=== PATIENT | male | born 1945 | race Caucasian/White ===

== ENCOUNTER 2023-03-26 09:42 | Day surgery (SDC) | payer OTHER, SELFPAY ==
[2023-03-26] VITALS (15 sets, daily range): BP systolic 101–135; BP diastolic 59–77; BMI 24.2
[2023-03-26 10:13] LABS: Hemoglobin 11.7 g/dL (13.0-18.0); Mean Corp Hgb Conc. 33.4 g/dL (33.0-37.0); Mean Corpuscular Hgb 34.6 pg (27.0-31.0); Mean Corpuscular Volume 103.6 fL (80.0-94.0); Mean Platelet Volume 10.4 fL (7.4-10.4); Platelet Count 136 10^3/uL (130-400); Red Blood Cell Count 3.38 10^6/uL (4.70-6.10); Red Cell Dist. Width 14.8 % (11.5-14.5); White Blood Cell Count 5.5 10^3/uL (4.8-10.8)
[2023-03-26] MEDS: NSS 198 ML IV (10:41)
[2023-03-26 13:41] LABS: ACT-LR - POC 281 Seconds (116-155)
--- NOTE | 2023-03-26 14:34 | ITS.CL.CATH ---
Slice Plug Cutter Operator - Catheterization
Cardiac Catheterization
Procedure Report:
CARDIAC CATHETERIZATION REPORT
Date of Procedure: 03/26/2023
Referring: Denis Simmons MD
Indication: Worsening left ventricular dysfunction
HEMODYNAMIC DATA
AO: 138/77
LV: 138/25
LEFT VENTRICULOGRAPHY: Inferior akinesis with severe global hypokinesis. The visually estimated ejection fraction is 20-25% and there is at least mild to moderate mitral regurgitation
CORONARY ANGIOGRAPHY
Dominance: Right
Left Main: Normal
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 There is at least mild LAD stenosis at the distal margin of the saccular aneurysm-no view effectively
quantifies the degree of stenosis. There is a focal 80% lesion in the mid LAD. The remainder of the LAD proper has mild luminal disease. The large first diagonal branch has at least mild ostial stenosis and there is 70% stenosis in the
significantly smaller daughter branch just distal to a bifurcation site.
Circumflex: Trivial luminal irregularities
RCA: 20% proximal and 30% mid stenoses. There is a 30% distal RCA stenosis past the crux and proximal to the takeoff of the RPDA. The RCA terminates with a large PDA and two large right posterolateral branches the more distal of which has 40% mid
stenosis.
FloWire assessment: I will plan was to do FloWire assessment of the LAD. Heparin was used for anticoagulation. The indwelling 5 Bangladeshi right radial artery sheath was upsized to a 0.035 compatibles 6 Bangladeshi sheath. A [employer] flow wire was advanced
into the LAD. 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 We then attempted to cross with a [employer] floppy wire but we were similarly unable to get
this wire through the saccular aneurysm. A whisper wire was then advanced and with persistent effort and some extremely good fortune we were able to get this wire through the aneurysm and then easily into the distal LAD. A second attempt was then
made to wire the vessel with the [place] flow wire hoping that it would tracked next to the whisper wire. This was not to be and we abandoned attempts to perform FloWire and decided to treat the 80% mid LAD lesion with angioplasty.
Angioplasty: At the conclusion of the diagnostic study, the patient underwent LAD intervention. A 3.0 x 12 Xience BARBY was advanced over the whisper wire and positioned to cover the 80% mid LAD lesion. Stenting with deployment pressure of 15 enedina
was followed by postdilatation with a 3.0 NC trek to 17 enedina. The final angiographic result was outstanding. There were no procedural complications. The patient was given Plavix 600 mg at the procedure conclusion.
Closure Device: None-the procedure was performed via the right radial artery. The Aurelio's test was normal prior to the procedure
Radiation (mGy): 568
DAP (cm2.Gy): 53.9
Fluoroscopy time: 10.6 minutes
CONCLUSIONS
1: Elevated LVEDP
2. Inferior akinesis and severe global hypokinesis with EF 20-25%
3. At least mild to moderate mitral regurgitation
4. Single-vessel LAD disease as described
5: Successful stenting of 80% mid LAD lesion using 3.0 x 12 Xience BARBY with outstanding angiographic result
6: We will treat with triple therapy (Eliquis, aspirin, Plavix) for 1 week then stop aspirin and treat for 1 year with Eliquis and Plavix
7. Recommend initiation of medical therapy for severe left ventricular dysfunction. He has allergy to MARY inhibitor which may be angioedema-therefore we will not begin MARY inhibitor, ARB, or Entresto at this time. The details of this allergy can
be worked out in the office setting and therapy with 1 of these agents initiated if appropriate. If not would begin hydralazine and nitrates.
8. Recommend reevaluation of left ventricular function in 3 months to determine whether ICD is appropriate
Copy to: Denis Simmons MD, Blake Pyle MD ([place], [place])
Mg Field MD, [facility], [facility]
[2023-03-26] MEDS: NSS 1000 IV (15:03)
--- NOTE | 2023-03-26 16:15 | W.PN.UPDATE ---
Update Note
Progress Note Update
Pt seen post LAD PCI. Right radial cath site initially with TR band and hematoma proximal to the band. Second band placed with good hematoma management. Both bands with on scheduled with air removal and now no ht/bleeding, non tender, palpable
pulse. Post EKG NSR w/LBBB as before, no acute changes. OOB to chair. To remain on triple therapy with asa/plavix/eliquis for 1 week post pci, then stop aspirin and remain on plavix/eliquis only. New start atorvastatin. Cardiac rehab consulted.
Followup at [facility] as scheduled. Home today if cath site/tele remain stable.
== END 2023-03-26 18:50 | disposition home or self-care (01) ==
LOC: CATH 09:42
PROVIDERS: ATTENDING PHYSICIAN Internal Medicine Cardiovascular Disease; FAMILY PHYSICIAN Family Medicine; OTHER PHYSICIAN Internal Medicine Cardiovascular Disease
DX: I25.10 Atherosclerotic heart disease of native coronary artery without angina pectoris (principal); I34.0 Nonrheumatic mitral (valve) insufficiency; Z88.8 Allergy status to other drugs, medicaments and biological substances; I25.3 Aneurysm of heart; I51.9 Heart disease, unspecified
CPT/HCPCS: 85027; 85347; 93005; 93458; 93571; C1725; C1769; C1874; C1894; C9600; Q9967

== ENCOUNTER 2023-04-07 06:41 | Inpatient (IN) | payer OTHER, SELFPAY ==
[2023-04-07] VITALS (16 sets, daily range): BP systolic 111–143; BP diastolic 59–97; PULSE 2–89; BMI 22.7; BMI 21.5
--- NOTE | 2023-04-07 05:12 | ED.GENMED ---
History of Present Illness
General
Chief Complaint: Breathing Problem
Source: patient
Time Seen by Provider: 04/07/23 05:12
Travel History
Have you had any contact with someone who has COVID-19?: No
Do you have any symptoms of coronavirus? Fever > 100 degrees, chills, cough, shortness of breath, sore throat, loss of taste or smell, muscle aches, or headache?: Yes
Symptoms:: SOB
History of Present Illness
History of Present Illness:
Pleasant 78 old male that presents with acute hypoxia that has been present intermittently but worsening since Wednesday. Patient has a history of renal cancer that was treated 23 years ago. 3 years ago came back and patient has a large mass in his
abdomen with metastases to the lungs. He is being treated at [facility]. His chemotherapeutic agent was stopped 2 weeks ago so that he can get a cardiac catheterization and stenting 1 week ago. Patient states that he has been having difficulty
breathing since Wednesday. states that he is a full code. He is also very pale. states that after the cardiac catheterization, his color improved. Patient denies any current chest pain but does have shortness of breath. He has a history
of Parkinson's.
Vital signs are stable. Patient is hypoxic, and is on BiPAP
Nursing note reviewed. I agree with nursing documentation up to this point in time.
Home Meds and allergies reviewed.
NUMBER AND COMPLEXITY OF PROBLEMS ADDRESSED AT THE ENCOUNTER
� Chronic conditions affecting care: Renal cancer with mets to the lung, CHF, CAD
� Acute Exacerbation and/or Progression of Chronic Illness: Patient has been off chemotherapeutics for cardiac catheterization. There is concern that previous progress and shrinking the tumors has lost, and tumor is now larger
� Differential Diagnosis includes: Lung metastasis, COPD, asthma
AMOUNT AND/OR COMPLEXITY OF DATA TO BE REVIEWED AND ANALYZED
I performed an independent evaluation of the following and my interpretation is:
EKG: EKG shows normal sinus rhythm rate of 81 with left atrial enlargement present as evidenced by high amplitude, there is a left bundle branch block present which was seen on previous EKG.
CT:
X-rays: Portable chest x-ray shows pulmonary vascular congestion with possible infiltrate and/or mass in the left lobe.
Ultrasound:
Laboratory Studies:
Other:
Review of other/old records:Journeyman Painter Report
1: Elevated LVEDP
2.� Inferior akinesis and severe global hypokinesis with EF 20-25%
3.� At least mild to moderate mitral regurgitation
4.� Single-vessel LAD disease as described
5: Successful stenting of 80% mid LAD lesion using 3.0 x 12 Xience BARBY with outstanding angiographic result
6: We will treat with triple therapy (Eliquis, aspirin, Plavix) for 1 week then stop aspirin and treat for 1 year with Eliquis and Plavix
7.� Recommend initiation of medical therapy for severe left ventricular dysfunction.� He has allergy to MARY inhibitor which may be angioedema-therefore we will not begin MARY inhibitor, ARB, or Entresto at this time.� The details of this allergy can
be worked out in the office setting and therapy with 1 of these agents initiated if appropriate.� If not would begin hydralazine and nitrates.
8.� Recommend reevaluation of left ventricular function in 3 months to determine whether ICD is appropriate
Clinical information was obtained by an independent historian: , present at the bedside
Prescriptions/Medications Considered but not given:
Further testing considered but not performed:
RISK OF COMPLICATIONS AND/OR MORBIDITY OR MORTALITY OF PATIENT MANAGEMENT
Social determinants of health affecting care: Good Social Support
Discussion with other providers: Hospitalist for admission
Escalation of care including admission/observation vs risk of discharge considered: Patient full code, on BiPAP, hypoxic
CRITICAL CARE NOTE:
Critical care statement: A total of 30 minutes of critical care time was provided for this patient. This time is separate from time utilized to perform the aforementioned documented procedures. Aggregate critical care time includes only time
during which I was engaged in work directly related to the patient's care, as described above, whether at the bedside or elsewhere in the Emergency Department.
Total Time (exclusive of procedures):30
Update:
Past History
Past History
ED Past Medical History: Asthma, CAD, CHF, HTN and Other (Peripheral vascular disease, Parkinson's disease)
ED Past Surgical History: Appendectomy
Social History
Tobacco: Non-smoker
Review of Systems
Review of Systems
Allergies reviewed?: Yes
Other source history: family
All Other Systems: ROS reviewed and negative except as documented in HPI and ROS
Constitutional: Reports fatigue and sleep disturbance
Respiratory: Reports cough and trouble breathing
Psychiatric: Reports anxiety
Phy Exam
General Physical Exam
General Presentation: severe distress
General Skin: warm, dry and cool
General Habitus: elderly and frail
General Mental: alert and confused
General Hydration: appears well hydrated
ENT Exam
ENT Exam: EOMI, pharynx normal, neck supple and normocephalic
Eye Exam
Eye Exam: PERRL, cornea clear and conjunctiva normal
Cardiovascular Exam
Cardiovascular Exam: regular rate/rhythm, no edema, no murmur and normal peripheral pulses
Pulmonary Exam
Pulmonary Exam: decreased breath sounds and generalized wheezing
Oxygen Status: BiPAP and oxygen 2 liters via NC
Cough: coarse cough
Respirations: accessory muscle use, moderate effort and rapid
Breath Sounds: Wheeze: generalized
Gastrointestinal Exam
Gastrointestinal Exam: normal bowel sounds, non tender, soft, no organomegaly, no pulsatile mass and non distended
Neurological Exam
Neurological Exam: alert, oriented x3, no motor deficits and speech normal
Musculoskeletal Exam
Musculoskeletal Exam: full ROM and no edema
Skin Exam
Skin Exam: warm/dry, no rash, no petechia and pallor
Psychiatric Exam
Psychiatric Exam: normal mood/affect
Scores
Heart Failure Risk
Heart Failure Risk Score: Yes
History of Stroke or TIA: No
History of intubation for respiratory distress: No
Heart rate on ED arrival >/= 110: No
SaO2 <90% on arrival on room air: Yes
HR >/=110 during 3min walk test (or too ill to perform test): Yes
ECG has acute ischemic changes: No
Urea >/=12mmol/L (BUN 33.6mg/dL): No
Serum CO2>/=35mmol/L: No
Troponin I or T elevated to IN Level (0.4mg/dL): No
NT-proBNP >/=5,000ng/L (5,000pg/ml): Yes
HF Risk Score: 4
Admission Status: HIGH RISK 26.1% Consider SNF treatment or admission to hospital
Course
Orders/Labs/Results
Orders:
Orders
04/07/23 05:06
Ipratropium/Albuterol Sulfate [Duoneb] 3 ml .ROUTE .STK-MED ONE
04/07/23 05:07
Electrocardiogram (*1) Urgent
Reason for Study: Other
Other Reason for Exam: Respiratory Distress
Cardiac Monitoring- Treatment ONCE
EKG- Treatment ONCE
IV Insert/Care/Rem.- Treatment PRN
Portable Chest Xray [CR Chest Portable - 1 View] Urgent
Comment:
Reason For Exam: sob
Reason Study Needs to be Portable: Patient Unstable
04/07/23 05:12
Complete Blood Count/With Diff Urgent
Comprehensive Metabolic Panel Urgent
NT-proBNP Urgent
Troponin I Urgent
04/07/23 05:14
Type And Crossmatch Urgent
04/07/23 05:24
COVID-19 Antigen Urgent
Source: Nasal Swab
Influenza A+B Rapid Molecular Urgent
GUNNAR Source: Nasal Swab
Specimen Description:
04/07/23 05:51
ABG [Arterial Blood Gas] Urgent
%Oxygen/Room Air: Bipap
Abnormal Lab Results
04/07/23 04/07/23
05:12 05:51
RBC 3.24 L 10^6/uL
(4.70-6.10)
Hgb 11.3 L g/dL
(13.0-18.0)
Hct 34.4 L %
(39.0-52.0)
MCV 106.2 H fL
(80.0-94.0)
MCH 34.9 H pg
(27.0-31.0)
MCHC 32.8 L g/dL
(33.0-37.0)
RDW 14.6 H %
(11.5-14.5)
Abs Immat Gran (auto) 0.1 H 10^3/uL
(0-0.05)
Absolute Neuts (auto) 8.7 H 10^3/uL
(1.4-6.5)
Absolute Lymphs (auto) 0.4 L 10^3/uL
(1.2-3.4)
Absolute Monos (auto) 1.0 H 10^3/uL
(0.1-0.6)
Neutrophils % 85.7 H %
(42.2-75.2)
Lymphocytes % 3.8 L %
(20.5-51.1)
Monocytes % 9.8 H %
(1.7-9.3)
pO2 72 L mmHg
(83-108)
Potassium 5.3 H mmol/L
(3.5-5.1)
BUN 29 H mg/dl
(9-20)
Glucose 134 H mg/dl
(70-99)
Total Protein 6.1 L g/dl
(6.3-8.2)
Albumin 3.2 L g/dl
(3.5-5.0)
04/07/23 05:12
04/07/23 05:12
Vital Signs
Initial and Last Documented VS:
Initial Vital Signs
Pulse Resp BP Pulse Ox
86 32 143/83 88
04/07/23 05:05 04/07/23 05:05 04/07/23 05:05 04/07/23 05:05
Last Documented Vital Signs
Pulse Resp BP Pulse Ox
86 32 143/83 97
04/07/23 05:05 04/07/23 05:05 04/07/23 05:05 04/07/23 05:32
*Critical Care Note
Total Time (30-74mins, 75-104mins- exclusive of procedures): 35
comment:
Critical care statement: A total of 35 minutes of critical care time was provided for this patient. This time is separate from time utilized to perform the aforementioned documented procedures. Aggregate critical care time includes only time
during which I was engaged in work directly related to the patient's care, as described above, whether at the bedside or elsewhere in the Emergency Department.
Data Reviewed
Review of Other/Old Records Reveals: Labs, Testing and Progress Notes
Source: patient
ED Attending Note
-
Portions of this chart may have been created with voice recognition software.� Occasional wrong word or��sound alike� substitutions may have occurred due to the inherent limitations of voice recognition software.
Discharge Plan
Departure
Patient Disposition: Admit
Date of Disposition: 04/07/23
Time of Disposition: 06:12
Admit to: IMU
Presentation/result/management discussed w/ accepting MD/DO: Hospitalist
Condition: Serious
Discharge Problem:
CHF (congestive heart failure), Hypoxia
Prescriptions:
No Action
metoprolol succinate 50 MG tablet extended release 24 hr
50 mg PO DAILY
aspirin 81 MG tablet,delayed release (DR/EC)
81 mg PO DAILY
spironolactone 12.5 MG tablet
12.5 mg PO Daily
amlodipine 10 MG tablet
10 mg PO DAILY
carbidopa-levodopa 1 TABLET tablet
2 tab PO BID
carbidopa-levodopa 1 TABLET tablet
1 tab PO QPM
atorvastatin 40 mg Tablet
40 mg PO QPM Qty: 90 3RF
clopidogrel 75 mg Tablet
75 mg PO DAILY Qty: 90 3RF
nitroglycerin [nitroglycerin] 0.4 mg tablet, sublingual
0.4 mg sublingual [id number] PRN (Reason: chest pain) Qty: 25 2RF
Eliquis 5 mg Tablet
5 mg PO BID
Interventions
Interventions:
*Risk Screen - Suicide Last Done: 04/07/23 05:15
*General Assessment Last Done: 04/07/23 05:05
*Neglect/Abuse Screening Last Done: 04/07/23 05:05
ED- Fall Risk Assessment Last Done: 04/07/23 05:10
*ED COVID-19 Vaccine History Last Done: 04/07/23 05:10
ED- Cardiac Assessment Last Done: 04/07/23 05:15
ED- Pulmonary Assessment Last Done: 04/07/23 05:32
[2023-04-07 05:20] LABS: % Basophils 0.2 % (0-2); % Immature Granulocytes 0.5 % (0-0.5); % Lymphocytes 3.8 % (20.5-51.1); % Monocytes 9.8 % (1.7-9.3); % Neutrophils 85.7 % (42.2-75.2); Absolute Immature Granulocytes 0.1 10^3/uL (0-0.05); Absolute Lymphocytes 0.4 10^3/uL (1.2-3.4); Absolute Neutrophils 8.7 10^3/uL (1.4-6.5); Hematocrit 34.4 % (39.0-52.0); Hemoglobin 11.3 g/dL (13.0-18.0); Mean Corp Hgb Conc. 32.8 g/dL (33.0-37.0); Mean Corpuscular Hgb 34.9 pg (27.0-31.0); Mean Corpuscular Volume 106.2 fL (80.0-94.0); Mean Platelet Volume 9.1 fL (7.4-10.4); Nucleated Red Blood Cells % 0 % (-); Platelet Count 357 10^3/uL (130-400); Red Blood Cell Count 3.24 10^6/uL (4.70-6.10); Red Cell Dist. Width 14.6 % (11.5-14.5); White Blood Cell Count 10.1 10^3/uL (4.8-10.8)
[2023-04-07 05:43] LABS: ALT (SGPT) 18 U/L (0-50); AST (SGOT) 24 U/L (17-59); Albumin 3.2 g/dl (3.5-5.0); Alkaline Phosphatase 89 U/L (38-126); Blood Urea Nitrogen 29 mg/dl (9-20); Calcium 9.1 mg/dl (8.4-10.2); Carbon Dioxide 22 mmol/L (22-30); Chloride 105 mmol/L (98-107); Estimated Creatinine Clearance 46 ml/min; Glucose 134 mg/dl (70-99); Potassium 5.3 mmol/L (3.5-5.1); Sodium 140 mmol/L (135-145); Total Bilirubin 1.3 mg/dl (0.2-1.3); Total Protein 6.1 g/dl (6.3-8.2); eGFR 56.93
[2023-04-07 05:45] LABS: NT-proBNP 11700 pg/ml; Troponin I 0.014 ng/ml
[2023-04-07 06:00] LABS: B.E. -3.4 mmol/L; HCO3 21.3 mmol/L (21-28); O2 Saturation % 94.2 % (94-98); PCO2 36 mmHg (35-48); PO2 72 mmHg (83-108); pH 7.38 (7.35-7.45)
[2023-04-07 06:04] LABS: COVID-19 Antigen Negative (Negative)
--- NOTE | 2023-04-07 06:09 | HPS.HSE ---
Family Physician
-
Family Physician:
Chief Complaint
-
Shortness of breath, hypoxia
History of Present Illness
HPI: 78 yo old male PMH Parkinson's disease, hypertension, RCC with pulm mets, right nephrectomy, recent ACS s/p PCI to LAD 1 week prior; p/w SOB and acute hypoxia.
Symptoms started 3 days ago. He also c/o mild dry cough, but denies to CP.
Of note, patient underwent recent cardiac catheterization with PCI in LAD.
Medical History
Past Medical History
Past Medical History: Reports Other
Additional Past Medical History:
Parkinson's disease, hypertension, RCC with pulm mets, right nephrectomy, PCI to LAD 2 week2 prior, pulm embolism on Eliquis
Past Surgical History: Reports Other
Additional Past Surgical History:
Right nephrectomy
Social History
Tobacco: Non-smoker
Alcohol: None
Personal:
Living: With Family
Family History
Family History: Not pertinent
Allergies / Home Medications
Allergies reflects when Allergies were last updated in [email or web address].
Home Medications with original date entered in [email or web address]
Allergy/Medication List:
Allergies
Allergy/AdvReac Type Severity Reaction Status Date / Time
enalapril Allergy Severe Swelling Verified 04/07/23 05:05
Home Medications
amlodipine 10 mg tablet 10 mg PO DAILY Blood pressure 06/16/19
aspirin 81 mg tablet,delayed release 81 mg PO DAILY Blood clot prevention/tx 06/16/19
carbidopa 25 mg-levodopa 100 mg tablet 1 tab PO QPM Neurological Condition 06/16/19
carbidopa 25 mg-levodopa 100 mg tablet 2 tab PO BID Neurological Condition 06/16/19
metoprolol succinate 50 mg tablet,extended release 24 hr 50 mg PO DAILY Blood pressure 06/16/19
spironolactone 25 mg tablet 12.5 mg PO Daily Blood pressure 06/16/19
apixaban 5 mg tablet (Eliquis) 5 mg PO BID 03/26/23
atorvastatin 40 mg tablet 40 mg PO QPM #90 tabs 03/26/23
clopidogrel 75 mg tablet 75 mg PO DAILY #90 tabs 03/26/23
nitroglycerin 0.4 mg sublingual tablet 0.4 mg sublingual [id number] PRN chest pain #25 tabs 03/26/23
Review of Systems
-
Respiratory: Reports See HPI, Cough (mild and dry) and Trouble Breathing
Physical Exam
Vital Signs
Vital Signs
Pulse Resp BP Pulse Ox
86 32 143/83 97
04/07/23 05:05 04/07/23 05:05 04/07/23 05:05 04/07/23 05:32
Physical Exam
General: Well Developed, Well Nourished and Respiratory Distress
HEENT: NormoCephalic, Moist mucous membranes, Atraumatic and Oxygen (BIPAP)
Respiratory: Clear and Non Labored Respirations; No Wheezes or Accessory Resp Muscle Use
Cardiac: S1/S2 and Regular Rhythm; No Murmur or Rub
GI: Soft, Non Tender, Non Distended and Normal Bowel Sounds; No Organomegaly
Rectal: Deferred by Provider
Musculoskeletal: No Clubbing, No Cyanosis and No Edema
Skin: No Rash
Neuro: Awake and Alert
Psych: Calm and Intact Judgment/Insight
Laboratory Results
-
04/07/23 05:12
04/07/23 05:12
Laboratory Results
pH 7.38 (7.35-7.45) 04/07/23 05:51
pCO2 36 mmHg (35-48) 04/07/23 05:51
pO2 72 mmHg (83-108) L 04/07/23 05:51
HCO3 21.3 mmol/L (21-28) 04/07/23 05:51
Total Bilirubin 1.3 mg/dl (0.2-1.3) 04/07/23 05:12
AST 24 U/L (17-59) 04/07/23 05:12
ALT 18 U/L (0-50) 04/07/23 05:12
Alkaline Phosphatase 89 U/L (38-126) 04/07/23 05:12
Troponin I 0.014 ng/ml 04/07/23 05:12
Data Reviewed
-
Diagnostic Radiology: Image Personally Visualized and interpreted
Lab Data: Labs Reviewed by me
Impression/Plan
-
HPI: 78 yo old male PMH Parkinson's disease, hypertension, RCC with pulm mets, right nephrectomy, recent ACS s/p PCI to LAD 1 week prior; p/w SOB and acute hypoxia.
Symptoms started 3 days ago. He also c/o mild dry cough, but denies to CP.
Of note, patient underwent recent cardiac catheterization with PCI in LAD.
A/P:
# Acute hypoxic respiratory failure suspect related to pulmonary metastases
CXR noted infiltrate likely from lung metastases, follow formal report
Check procal and treat accordingly
COVID/Flu negative
Pulm CS
# Renal cell carcinoma with pulmonary metastases
# h/o right nephrectomy
Pt follows at [facility]
His chemotherapeutic agent was stopped 2 weeks ago for cardiac catheterization and stenting
# recent ACS s/p PCI to LAD 1 week prior
Cont ASA/plavix
Card CS
# Parkinson's disease
Cont PAINTING WORKER Sinemet
# h/o recent pulm embolism, on Eliquis for 3 months
Continue prior to admission Eliquis
# hypertension
Cont home meds except Aldactone due to hyperkalemia
# Mild hyperkalemia
hold PAINTING WORKER Aldactone
DVT ppx: PAINTING WORKER Eliquis
FC
[2023-04-07] MEDS: LASIX 60 MG IV (06:53)
[2023-04-07 07:44] LABS: Procalcitonin 0.41 ng/ml (0.0-0.25)
--- NOTE | 2023-04-07 07:45 | PTCARENOTE ---
Patient received from the ER, at bedside. Patient brought up on 6L N/C, placed back on BiPAP 12/5 with 12L due to increased work of breathing. Lasix was given just prior to arrival. AAO, VSMaria C. Admission questions done, assisted with
some. No complaints of pain. Will trial of BiPAP after a few hours, tolerating well at this time. Oriented to room. Call rousseau in reach.
[2023-04-07] MEDS: TOPROL XL 50 MG PO (08:33)
[2023-04-07] MEDS: ASPIR LOW (ENTERIC COATED) 81 MG PO (08:33)
[2023-04-07] MEDS: NORVASC 10 MG PO (08:34)
[2023-04-07] MEDS: ELIQUIS 5 MG PO ×2 (08:34→20:28)
[2023-04-07] MEDS: SINEMET 25-100 2 TABLET PO ×2 (08:34→20:28)
[2023-04-07] MEDS: PLAVIX 75 MG PO (08:34)
--- NOTE | 2023-04-07 09:24 | CON.PUL ---
Consultation
Consultation Request
Date/Time Consultation Requested: 04/07/23
Date/Time Consultation Performed: 04/07/23
Performing Provider: Lukasz
Reason for Consultation: SOB
Medical History
-
History of Present Illness:
Patient is a 78-year-old male with previous history of Parkinson disease, hypertension, RCC with mets to lung and bone, ACS with recent stent placement 1 week prior presenting with acute onset of shortness of breath and hypoxemia. He notes that
this started within the last few days, had previously not had shortness of breath in the past. Of note, he was noted to have echocardiogram with reduced EF of 30% felt to be due to his chemo regiment cabozantinib. This has recently been held by his
oncologist at [place].
Denies any prior history of lung disease in the past including asthma/COPD. He was essentially a non smoker, no exposures that he is aware of.
Of note, he was also recently diagnosed with PE and placed on Eliquis.
CXR showing bilateral upper lobe findings, GGOs that is new from prior but past imaging was from 2020 for comparison and he had most of his imaging done at [facility].
Unclear what changes are acute vs chronic.
Past Medical History
Past Medical History: Other (see list below)
Social History
Tobacco: Non-smoker
Alcohol: None
Drug: None
Family History
Family History: Reviewed & Not Pertinent
Allergies / Home Medications
Allergies
Allergy/AdvReac Type Severity Reaction Status Date / Time
enalapril Allergy Severe Swelling Verified 04/07/23 05:05
Home Medications
Medication Instructions Recorded Confirmed Last Taken Type
amlodipine 10 mg tablet 10 mg PO DAILY Blood pressure 06/16/19 04/07/23 04/06/23 08:00 History
aspirin 81 mg tablet,delayed 81 mg PO DAILY Blood clot 06/16/19 04/07/23 04/06/23 08:00 History
release prevention/tx
carbidopa 25 mg-levodopa 100 mg 1 tab PO QPM Neurological Condition 06/16/19 04/07/23 04/06/23 20:00 History
tablet
carbidopa 25 mg-levodopa 100 mg 2 tab PO BID Neurological Condition 06/16/19 04/07/23 04/06/23 20:00 History
tablet
metoprolol succinate 50 mg 50 mg PO DAILY Blood pressure 06/16/19 04/07/23 04/06/23 08:00 History
tablet,extended release 24 hr
spironolactone 25 mg tablet 12.5 mg PO Daily Blood pressure 06/16/19 04/07/23 04/06/23 08:00 History
apixaban 5 mg tablet (Eliquis) 5 mg PO BID 03/26/23 04/07/23 04/06/23 20:00 History
atorvastatin 40 mg tablet 40 mg PO QPM #90 tabs 03/26/23 04/07/23 04/05/23 20:00 Rx
clopidogrel 75 mg tablet 75 mg PO DAILY #90 tabs 03/26/23 04/07/23 04/06/23 08:00 Rx
nitroglycerin 0.4 mg sublingual 0.4 mg sublingual [id number] PRN 03/26/23 04/07/23 Unknown Rx
tablet chest pain #25 tabs
Review of Systems
-
History Source: Patient
All other systems: Negative unless noted
Vitals / Labs / Diagnostic Testing
Vital Signs
Temp Pulse Resp BP Pulse Ox
98.1 F 81 22 135/97 98
04/07/23 07:45 04/07/23 08:33 04/07/23 07:00 04/07/23 08:33 04/07/23 07:00
Lab Data
04/07/23 05:12
04/07/23 05:12
Laboratory Results
04/07/23
05:51
pH 7.38
pCO2 36
pO2 72 L
HCO3 21.3
O2 Delivery Level
Microbiology
04/07/23 05:24 Nasal Swab Influenza Types A & B ([facility]OS[facility]) - Final
Negative for Influenza A & B, NAAT
Negative results must be combined with clinical observations
and patient history.
Nucleic Acid Amplification test (NAAT)performed on the
[employer] NOW platform.
Diagnostic Testing:
Physical Exam
-
HEENT: Normocephalic, Anicteric and Moist Mucous Membranes
Cardiovascular: S1/S2 and Regular Rhythm
Respiratory: Rales and Non-Labored Respirations
GI: Soft, Non Distended and Non Tender
Neurology: Awake, Alert, Oriented, AO x 3 and No Motor Deficits
Skin: Warm, Dry and Good Color
General: Comfortable and Other (NAD, chronically ill appearing)
Assessment
-
Patient is a 78-year-old male with previous history of Parkinson disease, hypertension, RCC with mets to lung and bone, ACS with recent stent placement 1 week prior presenting with acute onset of shortness of breath and hypoxemia. He notes that
this started within the last few days, had previously not had shortness of breath in the past. Of note, he was noted to have echocardiogram with reduced EF of 30% felt to be due to his chemo regiment cabozantinib. This has recently been held by his
oncologist at [place]. CXR showing diffuse bilateral infiltrates, we are consulted for eval 04/07/23.
Acute hypoxic respiratory failure
Acute CHF with reduced EF, proBNP >53960
Weight gain 5-7 lbs
Bilateral patchy infiltrates, CHF likely, less likely drug induced pneumonitis
Severe LV dysfunction possible from chemotherapy
Had been on Cabozantinib, follows Dr Castorena at [facility]
Possible superimposed PNA, on abx, procal mildly elevated
Conditions present prior to admission:
Right hilar lung mass/Large pancreatic mass with bony metastases felt to be metastatic progression of RCC
History of renal cell carcinoma status post nephrectomy originally diagnosed 2000
Follows at [facility]
History of PE, on Eliquis
Asthma
CAD
Chronic systolic and diastolic heart failure
LBBB
Hypertension
Peripheral vascular disease
Parkinson's disease
Prior history of appendectomy
Plan
Hypoxemia noted on arrival, placed on 6L satting 93%
No history of home O2 use in past
Denies any prior history of lung disease in the past including asthma/COPD. He was essentially a non smoker, no exposures that he is aware of.
Of note, he was also recently diagnosed with PE and placed on Eliquis.
It would be unusual to develop lung disease acutely relating to asthma/COPD
Suspect patient has underlying CHF exacerbation given proBNP and reduced EF
states he had gained weight of 5-7 lbs in the past month
CXR showing bilateral upper lobe findings, GGOs that is new from prior but past imaging was from 2019 for comparison and he had most of his imaging done at [facility].
Unclear what changes are acute vs chronic.
will bring in most recent imaging
Other imaging reviewed from 2019
Metastatic RCCC history
Cabozantinib information via [employer] showing minimal pulmonary disease related to use
>2% pleural effusion; <5% PE
Drug induced pneumonitis less likely
ECHO results in past reviewed--EF reduced
proBNP 38924
[place] to be due to chemo, on hold
Cards eval
Recommend IV diuresis
Procal mildly elevated, on empiric abx
Check sputum culture if able
If not improving, may consider CT imaging
Will need outpatient pulmonary evaluation in our office for PFTs and 6MWT
Reviewed with patient
He has never had PFTs
Malnutrition may be an issue as well
Optimize diet
Aspiration precautions
We will follow
Diagnostic Data
Chest X-Ray: 04/07/23- 1. Patchy foci of interstitial and alveolar opacity bilaterally. Differential diagnosis includes multifocal pneumonia and atypical pulmonary edema. Radiographic follow-up to resolution is recommended.
2. Small left pleural effusion.
CT Chest 06/30/19- IMPRESSION:
1). There is a 4.5 cm heterogeneous pulmonary mass at the posterior inferior left hilum which highly probably is malignant.
2). There is 1.8 cm oval well-circumscribed pulmonary mass in the posterior aspect of the left upper lobe which is high-level suspicion for malignancy.
3). There is 2.4 cm lytic bone mass in the posterior medial left scapula which is high-level suspicion for lytic metastasis.
4). There is partial volume imaging of 10 cm inhomogeneous mass at the pancreatic head and adenopathy at the melecio hepatis seen on the 06/19/2019 MRI examination and 06/16/2019 CT abdomen pelvis study
5).There is a 2 cm inhomogeneous mass in the right lobe of the thyroid which, if clinically indicated, could be best further evaluated and followed with thyroid ultrasound
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
primary pancreatic cancer, less likely hepatic metastases from renal cell carcinoma.� Bilobed mass in the left abdomen and flank consistent with metastasis.� 3.9 cm enhancing mass in the right lower lobe of the lung consistent with pulmonary
metastasis.� 1.7 cm mass in the T12 vertebral body consistent with osseous metastases, Partial small bowel obstruction.� Large amount of varicosities in the wall of the gallbladder, no abnormal gallbladder distention or evidence for cholelithiasis,
no intrahepatic biliary dilatation,
Echo: 01/27/23- Severely reduced left ventricular systolic function. Left ventricular ejection�fraction is 30%.�Left ventricle is mildly dilated. Global hypokinesis.��Moderate mitral regurgitation.��Compared to prior study of Jan 2022: EF has
declined; MR is moderate from mild.
2019-Mildly reduced left ventricular systolic function, EF 45�50 percent, stage II diastolic dysfunction, mild to moderate MR.� Trace TR, estimated PA pressure 33�38
[facility] 03/26/23- 1: Elevated LVEDP
2.� Inferior akinesis and severe global hypokinesis with EF 20-25%
3.� At least mild to moderate mitral regurgitation
4.� Single-vessel LAD disease as described
5: Successful stenting of 80% mid LAD lesion using 3.0 x 12 Xience BARBY with outstanding angiographic result
PFT's:�
Reports and relevant images were personally reviewed.
[2023-04-07] MEDS: ZOSYN 50 IV ×3 (10:15→20:29)
--- NOTE | 2023-04-07 13:51 | W.PN.HOSP.TC ---
Today's Communication/Plan
-
Monitor vital signs
see plan
Continue with IV Lasix
Cardiology to see
Continue with antibiotics for now
Wean oxygen as tolerated
Nonbillable note
Assessment / Plan
Assessment / Plan
General: Well Developed, Well Nourished and Respiratory Distress
HEENT: NormoCephalic, Moist mucous membranes, Atraumatic and Oxygen NC
Respiratory: Clear and Non Labored Respirations; No Wheezes or Accessory Resp Muscle Use
Cardiac: S1/S2 and Regular Rhythm; No Murmur or Rub
GI: Soft, Non Tender, Non Distended and Normal Bowel Sounds; No Organomegaly
Rectal: Deferred by Provider
Musculoskeletal: No Clubbing, No Cyanosis and No Edema
Skin: No Rash
Neuro: Awake and Alert
Psych: Calm and Intact Judgment/Insight
Acute hypoxic respiratory failure suspect related to acute CHF with reduced ejection fraction
was placed on bipap on admission; now on 6L
suspect component of PNA as well
Cardiac catheterization 2/2 with LAD stent, elevated left ventricular end-diastolic pressure, inferior akinesis and severe global hypokinesis with EF 20 to 25%
CXR noted; probnp mildly high
cw IV alsix
cardiology consulted
procal mildly high so will treat for PNA
COVID/Flu negative
Pulm following
# Renal cell carcinoma with pulmonary metastases
# h/o right nephrectomy
Pt follows at [facility]
His chemotherapeutic agent was stopped 2 weeks ago; restart when able per his outpatient oncology
mild hyperkalemia
monitor
# recent ACS s/p PCI to LAD 1 week prior
Cont ASA/plavix
Card CS
# Parkinson's disease
Cont REFRACTORY MIXER Sinemet
# h/o recent pulm embolism, on Eliquis for 3 months
Continue prior to admission Eliquis
# hypertension
Cont home meds except Aldactone due to hyperkalemia
# Mild hyperkalemia
hold REFRACTORY MIXER Aldactone
DVT ppx: REFRACTORY MIXER Eliquis
Anticipated Discharge: > 48 hours
Subjective/Interval History
-
Date of Service: April 07, 2023
denies chest pain
Objective Data
-
Labs:
Laboratory Results
04/07/23 04/07/23
05:12 05:51
WBC 10.1
Hgb 11.3 L
Hct 34.4 L
Plt Count 357
HCO3 21.3
Sodium 140
Potassium 5.3 H
Chloride 105
Carbon Dioxide 22
BUN 29 H
Creatinine 1.3
Glucose 134 H
Calcium 9.1
Total Bilirubin 1.3
AST 24
ALT 18
Alkaline Phosphatase 89
Vital Signs:
Vital Signs
Temp Pulse Resp BP Pulse Ox
97.7 F 81 22 135/97 93
04/07/23 11:54 04/07/23 08:33 04/07/23 07:00 04/07/23 08:33 04/07/23 12:25
I&O
04/06/23 04/07/23 04/08/23
06:59 06:59 06:59
Output Total 800 / 800
Balance -800 / -800
--- NOTE | 2023-04-07 16:24 | CM ---
Patient with Hx Renal cell carcinoma with pulmonary metastases, Parkinson's disease with Dx Acute hypoxic respiratory failure, CHF. Bipap. O2 6L. Receiving IV Lasix, IV Zosyn.
Met with patient who resides with his in a 2 story house, with first floor bedroom/bath.
The patient was Independent for ADLs/ambulation. He is active and drives. still works.
No DME, prior VN or SNF.
PCP - Blake Pyle
Pharmacy - [facility]
Offered VN and patient declined.
Plan watch for home O2 needs.
Plan home.
--- NOTE | 2023-04-07 17:18 | CON.CAR ---
Addendum entered and electronically signed by Aicha Barba MD 04/07/23 17:49:
I saw and examined the patient.
The SALVAGE LABORER's note was reviewed and I agree with the note.
Comment: 78-year-old with a past medical history of recent diagnosis of cardiomyopathy with an EF of 30%, recent PCI 03/26/2023 to the LAD, metastatic renal cell carcinoma on chemotherapy, left bundle branch block and PE presented with increasing
shortness of breath since Wednesday. describes him to be wheezing, orthopneic and gaining weight. Initially they were concerned that the new antiplatelet might have caused the wheezing so he skipped 2 days of it. Luckily no chest pain. He was
admitted and started on BiPAP. He is back on BiPAP after a brief respite this afternoon. Currently he is feeling better. On exam, his JVP is elevated, he has faint end expiratory wheezing diffusely, regular rate and rhythm. No lower extremity
edema. Chest x-ray is not very impressive but official read says patchy focal interstitial and alveolar opacities seen in the left perihilar and right upper lung zone differential diagnosis multifocal pneumonia or atypical pulmonary edema. He is
being treated for pneumonia. Clearly, there are signs of volume overload. We will add an additional dose of Lasix and see if this helps get him off BiPAP. He will continue on Plavix and Eliquis, no need for aspirin. We had a nilda discussion
about the importance of compliance with this regimen to reduce his risk of acute thrombosis of his stent. Eventually, GDMT will be optimized. I suspect he needs to take at standing Lasix dose as he was only on Aldactone as an outpatient. Will
follow.
Original Note:
Consultation
Consultation Request
Date/Time Consultation Requested: 04/07/20 [id number]
Date/Time Consultation Performed: 04/07/23 1721
Requesting Provider: Dr. Vasquez
Performing Provider: Wendy HOFFMAN for Dr. Barba
Reason for Consultation: CHF
Medical History
-
Chief Complaint: SOB
History of Present Illness:
78 y/o male with hypertension, LBBB, mild CM EF 40-45%, but recently reduced 30% (though 20-25% on cath), mitral regurgitation, parkinson's disease, PE on Eliquis, recurrent left-sided renal cell carcinoma who was found to have worsened CM as noted
to EF 30%. A chemo agent he was on was discontinued and he was referred for cardiac cath, which he had on 03/26/23 and had LAD stent. He was on triple therapy for a week, but then ASA stopped and now on Plavix/Eliquis. He is here for 3 days of SOB,
worse with laying flat. 5-6 lb weight gain, but not eating much. Cough noted, non-productive. He is admitted for heart failure and received a dose of IV Lasix. Of note, he was wheezing at home and stopped plavix for 2 days and was told he may not do
this moving forward. He has no CP. He is currently on BiPAP.
Past Medical History
Past Medical History: Cancer, CHF, HTN, Valvular Disease and Other (as above)
Social History
Personal:
Living: With Family
Family History
Family History: CAD (mom and dad [place])
Allergies / Home Medications
Allergy/AdvReac Type Severity Reaction Status Date / Time
enalapril Allergy Severe Swelling Verified 04/07/23 05:05
Medication Instructions Recorded Confirmed Type
amlodipine 10 mg tablet 10 mg PO DAILY Blood pressure 06/16/19 04/07/23 History
aspirin 81 mg tablet,delayed 81 mg PO DAILY Blood clot 06/16/19 04/07/23 History
release prevention/tx
carbidopa 25 mg-levodopa 100 mg 1 tab PO QPM Neurological Condition 06/16/19 04/07/23 History
tablet
carbidopa 25 mg-levodopa 100 mg 2 tab PO BID Neurological Condition 06/16/19 04/07/23 History
tablet
metoprolol succinate 50 mg 50 mg PO DAILY Blood pressure 06/16/19 04/07/23 History
tablet,extended release 24 hr
spironolactone 25 mg tablet 12.5 mg PO Daily Blood pressure 06/16/19 04/07/23 History
apixaban 5 mg tablet (Eliquis) 5 mg PO BID 03/26/23 04/07/23 History
atorvastatin 40 mg tablet 40 mg PO QPM #90 tabs 03/26/23 04/07/23 Rx
clopidogrel 75 mg tablet 75 mg PO DAILY #90 tabs 03/26/23 04/07/23 Rx
nitroglycerin 0.4 mg sublingual 0.4 mg sublingual [id number] PRN 03/26/23 04/07/23 Rx
tablet chest pain #25 tabs
Review of Systems
-
History Source: Patient
All other systems: Negative unless noted
Constitutional: Weight Gain
Respiratory: Cough and Trouble Breathing
Physical Exam
Vital Signs
Temp Pulse Resp BP Pulse Ox
97.7 F 78 20 111/59 97
04/07/23 11:54 04/07/23 16:00 04/07/23 16:00 04/07/23 16:00 04/07/23 16:00
Lab Results
04/07/23 05:12
04/07/23 05:12
Troponin I 0.020 ng/ml D 04/07/23 12:37
Jcn-E-Tztvkxdbupx Pept [id number] pg/ml 04/07/23 05:12
Physical Exam
General: Well Developed and No Apparent Distress
HEENT: Normocephalic and Anicteric
Respiratory: Wheezes (mild) and Other (bipap)
Cardiac: Regular Rhythm
Skin: Warm and Dry
Neuro: AO x 3
Psych: Calm
Impression / Plan
-
SOB:
-[id number] HFrEF and possible PNA as well- PNA management per primary (on abx). Pulm on board as well.
Acute on chronic HFrEF:
-EF 30% on echo, 20-25% by cath
-had heart failure in the past per notes
-on Aldactone as OP, not Lasix- hyperkalemia is noted, so currently held. Follow.
-BNP elevated and reports weight gain and orthopnea
-received IV Lasix this AM, will give another dose now- monitor response. This medicine requires intensive monitoring for toxicity.
-on metoprolol. Of note, patient with hx throat/lip swelling with enalapril, so ACEI/ARB/Entresto being avoided.
CAD with recent LAD stenting 03/26/23:
-continue Plavix/Eliquis. No longer needs to be on aspirin and I stopped it (triple therapy was for one week).
-denies any CP
-re-educated on importance of compliance with above medicines
-continue Lipitor, metoprolol
Hx PE:
-on Eliquis
Renal cell carcinoma:
-hx nephrectomy
-follow with onc
-chemo agent recently held by onc for CM
LBBB: chronic, stable
HTN: stable
-follow
Data Reviewed
-
EKG: Tracing Personally Visualized and interpreted (SR with LBBB)
Radiology: Report Reviewed by me (Patchy foci of interstitial and alveolar opacity bilaterally. Differential diagnosis includes multifocal pneumonia and atypical pulmonary edema. Radiographic follow-up to resolution is recommended. 2. Small left
pleural effusion.)
Medical Tests (Nuc Med, Echo etc): Report Reviewed by me (echo 01/27/23: Severely reduced left ventricular systolic function. Left ventricular ejection fraction is 30%. Left ventricle is mildly dilated. Global hypokinesis. Moderate mitral
regurgitation. ) and Other (cath 03/26/23: Elevated LVEDP 2. Inferior akinesis and severe global hypokinesis with EF 20-25% 3. At least mild to moderate mitral regurgitation 4. Single-vessel LAD disease as described 5: Successful stenting of 80%
mid LAD lesion)
Labs: Labs Reviewed by me
[2023-04-07] MEDS: LASIX 40 MG IV (17:34)
[2023-04-07] MEDS: LIPITOR 40 MG PO (18:36)
[2023-04-07] MEDS: SINEMET 25-100 1 TABLET PO (18:37)
[2023-04-07 19:21] LABS: Magnesium 2.3 mg/dl (1.6-2.3)
[2023-04-07] MEDS: MAGNESIUM SULFATE 50 IV (20:28)
[2023-04-08] VITALS (12 sets, daily range): BP systolic 105–139; BP diastolic 58–89; BMI 21.0
[2023-04-08] MEDS: ZOSYN 50 IV ×3 (02:52→17:43)
[2023-04-08 03:50] LABS: % Basophils 0.3 % (0-2); % Immature Granulocytes 0.7 % (0-0.5); % Lymphocytes 6.6 % (20.5-51.1); % Monocytes 11.9 % (1.7-9.3); % Neutrophils 79.5 % (42.2-75.2); Absolute Eosinophils 0.1 10^3/uL (0-0.7); Absolute Immature Granulocytes 0.1 10^3/uL (0-0.05); Absolute Lymphocytes 0.5 10^3/uL (1.2-3.4); Absolute Monocytes 0.9 10^3/uL (0.1-0.6); Absolute Neutrophils 5.8 10^3/uL (1.4-6.5); Hematocrit 27.2 % (39.0-52.0); Hemoglobin 9.5 g/dL (13.0-18.0); Mean Corp Hgb Conc. 34.9 g/dL (33.0-37.0); Mean Corpuscular Hgb 34.8 pg (27.0-31.0); Mean Corpuscular Volume 99.6 fL (80.0-94.0); Mean Platelet Volume 9.3 fL (7.4-10.4); Nucleated Red Blood Cells % 0 % (-); Platelet Count 273 10^3/uL (130-400); Red Blood Cell Count 2.73 10^6/uL (4.70-6.10); Red Cell Dist. Width 14.4 % (11.5-14.5); White Blood Cell Count 7.3 10^3/uL (4.8-10.8)
[2023-04-08 04:18] LABS: Blood Urea Nitrogen 30 mg/dl (9-20); Calcium 8.2 mg/dl (8.4-10.2); Carbon Dioxide 28 mmol/L (22-30); Chloride 102 mmol/L (98-107); Estimated Creatinine Clearance 40 ml/min; Glucose 105 mg/dl (70-99); Magnesium 2.6 mg/dl (1.6-2.3); Sodium 137 mmol/L (135-145); eGFR 52.09
--- NOTE | 2023-04-08 05:44 | PTCARENOTE ---
No acute events overnight. Patient remained on 6 liters NC.
--- NOTE | 2023-04-08 07:54 | W.PN.CD ---
Addendum entered and electronically signed by Denis Simmons MD 04/08/23 08:10:
-
Anemia
new, mild anemia
he is on eliquis and plavix for Hx PE, and recent mid-LAD stent
plan to monitor H/H carefully
Original Note:
Today's Communication / Plan
-
-
see Bold
Impression / Plan
-
SOB:
- uncertain cause of pulm infiltrates - HF vs Other
-he was diuresed last night, and BUN/Cr are up but he is not that much better
-we will consider RHC to determine whether more diuresis is appropriate
-I will discuss w Pulm and Hospit
Acute on chronic HFrEF:
-EF 30% on echo, 20-25% by cath
-had heart failure many years ago, but EF recovered to 40% and has been stable without Sxs until recently
-New, recurrent HF thought to be due to cabozaninib which has now been dc'd
-on Aldactone as OP, not Lasix- hyperkalemia is noted, so currently held. Follow.
-BNP elevated and reports weight gain and orthopnea
-received IV Lasix x 2 yesterday - now BUN/Cr are up, I will hold diuretic for now
-on metoprolol. Of note, patient with hx throat/lip swelling with enalapril, so ACEI/ARB/Entresto being avoided.
CAD with recent LAD stenting 03/26/23:
-continue Plavix/Eliquis. No longer needs to be on aspirin (he completed triple therapy was for one week).
-denies any CP
-continue Lipitor, metoprolol
Hx PE:
-on Eliquis
Renal cell carcinoma:
-hx nephrectomy
-follow with onc - (Dr Kimberly Castorena at [facility] - [phone])
-chemo agent/TKI noted above, recently held by onc for CM
LBBB: chronic, stable
HTN: stable
-follow
Physical Exam
Vital Signs/Labs
Vital Signs
Temp Pulse Resp BP Pulse Ox
97.9 F 67 16 127/75 95
04/08/23 02:45 04/08/23 06:00 04/08/23 06:00 04/08/23 06:00 04/08/23 06:00
04/07/23 04/08/23 04/09/23
06:59 06:59 06:59
Actual Weight 149 lb 4.047 oz 138 lb 3.677 oz
04/08/23 03:17
04/08/23 03:17
Magnesium 2.6 mg/dl (1.6-2.3) H 04/08/23 03:17
04/07/23
05:12
Aal-K-Lmgjorvngjm Pept 13735
LAB Results
04/07/23 04/07/23
05:12 12:37
Troponin I 0.014 0.020 D
Physical Exam
Constitutional: Other (sob, on NC O2)
Cardiovascular: Rhythm & rate is regular and Pedal edema is absent
Respiratory: Labored respirations and Crackles Present
GI: Soft and Distention absent
Neuro/Psych: Alert
Data Reviewed
-
Date of Service: April 08, 2023
EKG: Tracing Personally Visualized and interpreted
X-Ray/CT/US/MRI/NUC/PET: Image Personally Visualized and interpreted
Labs: Labs Reviewed by me
[2023-04-08] MEDS: TOPROL XL 50 MG PO (08:20)
[2023-04-08] MEDS: SINEMET 25-100 2 TABLET PO ×2 (08:20→20:13)
[2023-04-08] MEDS: NORVASC 10 MG PO (08:20)
[2023-04-08] MEDS: PLAVIX 75 MG PO (08:26)
[2023-04-08] MEDS: ELIQUIS 5 MG PO ×2 (08:26→20:13)
--- NOTE | 2023-04-08 08:43 | PTCARENOTE ---
Patient received from command and control officer. Patient resting comfortably in bed. AAO, VSS. No events noted overnight. No complaints of pain. Patient remained off BiPAP overnight and tolerated the 6L N/C well. Plan for CT today and right heart cath,
patient made NPO. External catheter working well, no blood noted. Call rousseau in reach.
--- NOTE | 2023-04-08 09:12 | W.PN.PUL3 ---
Today's Communication / Plan
-
RHC per cards
CT chest w/o contrast
Diuresis on hold due to BLESSING
Wean O2 as tolerated
Optimize nutrition
Assessment
-
Patient is a 78-year-old male with previous history of Parkinson disease, hypertension, RCC with mets to lung and bone, ACS with recent stent placement 1 week prior presenting with acute onset of shortness of breath and hypoxemia. He notes that
this started within the last few days, had previously not had shortness of breath in the past. Of note, he was noted to have echocardiogram with reduced EF of 30% felt to be due to his chemo regiment cabozantinib. This has recently been held by his
oncologist at [place]. CXR showing diffuse bilateral infiltrates, we are consulted for eval 04/07/23.
Acute hypoxic respiratory failure
Acute CHF with reduced EF, proBNP >80661
Weight gain 5-7 lbs
Bilateral patchy infiltrates, CHF likely, less likely drug induced pneumonitis
Severe LV dysfunction possible from chemotherapy
Had been on Cabozantinib, follows Dr Castorena at [facility]
Possible superimposed PNA, on abx, procal mildly elevated
BLESSING
Conditions present prior to admission:
Right hilar lung mass/Large pancreatic mass with bony metastases felt to be metastatic progression of RCC
History of renal cell carcinoma status post nephrectomy originally diagnosed 2000
Follows at [facility]
History of PE, on Eliquis
Asthma
CAD
Chronic systolic and diastolic heart failure
LBBB
Hypertension
Peripheral vascular disease
Parkinson's disease
Prior history of appendectomy
Plan
Hypoxemia noted on arrival, placed on 6L satting 93%
No history of home O2 use in past
Denies any prior history of lung disease in the past including asthma/COPD. He was essentially a non smoker, no exposures that he is aware of.
Of note, he was also recently diagnosed with PE and placed on Eliquis.
It would be unusual to develop lung disease acutely relating to asthma/COPD
Suspect patient has underlying CHF exacerbation given proBNP and reduced EF
states he had gained weight of 5-7 lbs in the past month
CXR showing bilateral upper lobe findings, GGOs that is new from prior but past imaging was from 2019 for comparison and he had most of his imaging done at [facility].
Unclear what changes are acute vs chronic.
will bring in most recent imaging
Other imaging reviewed from [address] chest for comparisons
Metastatic RCCC history
Cabozantinib information via [employer] showing minimal pulmonary disease related to use
>2% pleural effusion; <5% PE
Drug induced pneumonitis less likely
ECHO results in past reviewed--EF reduced
proBNP 57019
Ryegate to be due to chemo, on hold
Cards eval--agree with RHC
IV diuresis held due to BLESSING
Procal mildly elevated, on empiric abx
Check sputum culture if able
Will need outpatient pulmonary evaluation in our office for PFTs and 6MWT
Reviewed with patient
He has never had PFTs
Malnutrition may be an issue as well
Optimize diet
Aspiration precautions
Communicated care plan today with patient and with care team via TT
Diagnostic Data
Chest X-Ray: 04/07/23- 1. Patchy foci of interstitial and alveolar opacity bilaterally. Differential diagnosis includes multifocal pneumonia and atypical pulmonary edema. Radiographic follow-up to resolution is recommended.
2. Small left pleural effusion.
CT Chest 06/30/19- IMPRESSION:
1). There is a 4.5 cm heterogeneous pulmonary mass at the posterior inferior left hilum which highly probably is malignant.
2). There is 1.8 cm oval well-circumscribed pulmonary mass in the posterior aspect of the left upper lobe which is high-level suspicion for malignancy.
3). There is 2.4 cm lytic bone mass in the posterior medial left scapula which is high-level suspicion for lytic metastasis.
4). There is partial volume imaging of 10 cm inhomogeneous mass at the pancreatic head and adenopathy at the melecio hepatis seen on the 06/19/2019 MRI examination and 06/16/2019 CT abdomen pelvis study
5).There is a 2 cm inhomogeneous mass in the right lobe of the thyroid which, if clinically indicated, could be best further evaluated and followed with thyroid ultrasound
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
primary pancreatic cancer, less likely hepatic metastases from renal cell carcinoma.� Bilobed mass in the left abdomen and flank consistent with metastasis.� 3.9 cm enhancing mass in the right lower lobe of the lung consistent with pulmonary
metastasis.� 1.7 cm mass in the T12 vertebral body consistent with osseous metastases, Partial small bowel obstruction.� Large amount of varicosities in the wall of the gallbladder, no abnormal gallbladder distention or evidence for cholelithiasis,
no intrahepatic biliary dilatation,
Echo: 01/27/23- Severely reduced left ventricular systolic function. Left ventricular ejection�fraction is 30%.�Left ventricle is mildly dilated. Global hypokinesis.��Moderate mitral regurgitation.��Compared to prior study of Jan 2022: EF has
declined; MR is moderate from mild.
2019-Mildly reduced left ventricular systolic function, EF 45�50 percent, stage II diastolic dysfunction, mild to moderate MR.� Trace TR, estimated PA pressure 33�38
[facility] 03/26/23- 1: Elevated LVEDP
2.� Inferior akinesis and severe global hypokinesis with EF 20-25%
3.� At least mild to moderate mitral regurgitation
4.� Single-vessel LAD disease as described
5: Successful stenting of 80% mid LAD lesion using 3.0 x 12 Xience BARBY with outstanding angiographic result
PFT's:�
Reports and relevant images were personally reviewed.
Subjective Data
-
Date of Service:
Date of Service: April 08, 2023
Chief Complaint: Pulmonary Follow Up
Subjective:
patient seen and examined, no acute events on
remains stable on o2, reports his sob is no worse
lying in bed, deconditioned
Objective Data
Data Reviewed
Vital Signs / I&O / Oxygen:
Vital Signs
Temp Pulse Resp BP Pulse Ox
97.6 F 78 16 139/70 95
04/08/23 07:18 04/08/23 08:20 04/08/23 06:00 04/08/23 08:20 04/08/23 06:00
Intake and Output
04/07/23 04/08/23 04/09/23
06:59 06:59 06:59
Intake Total 270 / 270
Output Total 2750 / 2750
Balance -2480 / -2480
SaO2 95
Nasal Cannula flow liters per 6
minute
Physical Exam
General: Comfortable, Poor Appetite and Other (NAD, thin appearing)
HEENT: Normocephalic and Anicteric
Cardiovascular: S1-S2 and Regular Rhythm
Respiratory: Crackles (mild) and Non-Labored Respirations
GI: Soft, Non Distended and Non Tender
Neurology: Awake, Alert, Oriented, AO x 3, No Motor Deficits and Depressed
Skin: Warm, Dry and Good Color
Labs/Micro/Reports
Lab Data
04/08/23 03:17
04/08/23 03:17
Microbiology
04/07/23 20:41 Urine Legionella Urinary Antigen - Final
Negative for Legionella pneumophila Serogroup 1 antigen.
A negative result does not rule out the possiblity of
Legionella infection due to other serogroups or species of
Legionella. Clinical correlation is recommended.
04/07/23 20:41 Urine Streptococcus pneumoniae Antigen (M - Final
Negative for Streptococcus pneumoniae antigen.
A negative result does not exclude infection with
Streptococcus pneumoniae. Clinical correlation is
recommended.
04/07/23 05:24 Nasal Swab Influenza Types A & B ([facility]OS[facility]) - Final
Negative for Influenza A & B, NAAT
Negative results must be combined with clinical observations
and patient history.
Nucleic Acid Amplification test (NAAT)performed on the
[employer] platform.
--- NOTE | 2023-04-08 09:52 | PTCARENOTE ---
Patient with another run of SVT, hospitalist and cardiology notified.
[2023-04-08] MEDS: NSS (PRESERVATIVE FREE) 10 ML IV (09:55)
[2023-04-08] MEDS: PROTONIX IV 40 MG IV (09:55)
[2023-04-08 10:01] LABS: Iron 34 ug/dl (49-181)
[2023-04-08 10:11] LABS: Percent Saturation 17 % (20-50); Total Iron Binding Capacity 193 ug/dl (261-462)
[2023-04-08 11:07] LABS: Folate 6.5 ng/ml (2.76-20); Vitamin B12 248 pg/ml (239-931)
--- NOTE | 2023-04-08 13:48 | W.PN.HOSP.TC ---
Today's Communication/Plan
-
Monitor vital signs and see plan
Monitor renal function
Monitor renal function
Check UA
CT scan pending
Cardiac cath today
wean o2 as tolerated
Assessment / Plan
Assessment / Plan
General: Well Developed, Well Nourished and Respiratory Distress
HEENT: NormoCephalic, Moist mucous membranes, Atraumatic and Oxygen NC
Respiratory: Clear and Non Labored Respirations; No Wheezes or Accessory Resp Muscle Use
Cardiac: S1/S2 and Regular Rhythm; No Murmur or Rub
GI: Soft, Non Tender, Non Distended and Normal Bowel Sounds; No Organomegaly
Rectal: Deferred by Provider
Musculoskeletal: No Clubbing, No Cyanosis and No Edema
Skin: No Rash
Neuro: Awake and Alert
Psych: Calm and Intact Judgment/Insight
Acute hypoxic respiratory failure suspect related to acute CHF with reduced ejection fraction
was placed on bipap on admission; now on 6L
suspect component of PNA as well
Cardiac catheterization / with LAD stent, elevated left ventricular end-diastolic pressure, inferior akinesis and severe global hypokinesis with EF 20 to 25%
CXR noted; probnp mildly high
was on IV lasix which is now on hold due to elevated creatinine. Plan for right heart cath 04/08
cardiology following
procal mildly high so will treat for PNA
COVID/Flu negative
Pulm following
CT chest pending
# Renal cell carcinoma with pulmonary metastases
# h/o right nephrectomy
Pt follows at [facility]
His chemotherapeutic agent was stopped 2 weeks ago; restart when able per his outpatient oncology
has [place] cath and overnight once small blood clot per patient; urine now clear. monitor check Ua
Anemia, suspect some dilutional
Monitor
Has good iron stores
Low vitamin B12, will replete
mild hyperkalemia
monitor
Hyperkalemia
improved
# recent ACS s/p PCI to LAD 1 week prior
Cont ASA/plavix
cards following
# Parkinson's disease
Cont [employer] Sinemet
# h/o recent pulm embolism, on Eliquis for 3 months
Continue prior to admission Eliquis
# hypertension
Cont home meds except Aldactone due to hyperkalemia
# Mild hyperkalemia
hold [employer] Aldactone
DVT ppx: [employer] Eliquis
I spent a total of 53 minutes with the patient or on the floor. More than 50% of this time involved counseling and coordination of care.
Anticipated Discharge: > 48 hours
Subjective/Interval History
-
Date of Service: April 08, 2023
denies chest pain
Objective Data
-
Labs:
Laboratory Results
04/08/23
03:17
WBC 7.3
Hgb 9.5 L
Hct 27.2 L
Plt Count 273 D
Sodium 137
Potassium 4.0
Chloride 102
Carbon Dioxide 28
BUN 30 H
Creatinine 1.4 H
Glucose 105 H
Calcium 8.2 L
Vital Signs:
Vital Signs
Temp Pulse Resp BP Pulse Ox
97.4 F 78 16 139/70 95
04/08/23 11:20 04/08/23 08:20 04/08/23 06:00 04/08/23 08:20 04/08/23 11:58
I&O
04/07/23 04/08/23 04/09/23
06:59 06:59 06:59
Intake Total 270 / 270
Output Total 2750 / 2750 700 / 700
Balance -2480 / -2480 -700 / -700
--- NOTE | 2023-04-08 16:45 | PTCARENOTE ---
Patient received from yard labor supervisor. Procedure reviewed. Site assessed at bedside. Patient AAO, VSS. Patient ready to order food. Call rousseau in reach.
--- NOTE | 2023-04-08 17:00 | ITS.CL.CATH ---
[facility] - Catheterization
Cardiac Catheterization
Procedure Report:
RIGHT HEART CATHETERIZATION
Date of Procedure: 04/08/2023
Referring: Denis Simmons M.D.
INDICATION: Clarification of volume status.
ACCESS:
5 Mozambican antecubital fossa using a modified Seldinger technique under ultrasound guidance.
CATHETERS:
5 Mozambican balloon wedge.
PROCEDURE:
The patient was prepped and draped in standard sterile fashion. The area for antecubital access was anesthetized with 1% lidocaine. A tourniquet was applied to the upper arm and an ultrasound was used to identify the basilic vein. The basilic vein
was accessed using a modified Seldinger technique with a standard 21-gauge access needle. Unfortunately, the wire would not thread consistently through the needle and there was a concern for the wire and a dissection plane. A 0.014 inch BMW wire
was brought onto the field and the wire tip was shaped to allow for steer ability. The BMW wire was advanced through the needle and then into the basilic vein, with some difficulty. The wire was advanced into the SVC, and a 5 Mozambican sheath was
inserted into the basilic vein over the BMW wire. A 5 Mozambican balloon wedge catheter was advanced through the sheath and over the BMW wire into the superior vena cava. An SVC oxygen saturation was drawn. The balloon wedge catheter was advanced into
the pulmonary artery and a pulmonary artery oxygen saturation was drawn. Arterial oxygen saturation was assumed from pulse oximetry. Cardiac output was calculated using the Rosendo equation. The PA, wedge, RV and RA pressures were measured on
pullback. The balloon wedge catheter was removed. The 5 Mozambican sheath was removed and manual pressure was held for hemostasis.
Weight (kg): 62.6
PA (s/d/x mmHg): 61/36/44
PCWP (a/v/x mmHg): 38/40/32
RV (s/x mmHg): 61/19
RA (a/v/x mmHg): 24//
SVC SvO2 (%): 51.1
IVC SvO2 (%): Not obtained.
RA SvO2 (%): Not obtained.
RV SvO2 (%): Not obtained.
PA SvO2 (%): 57.9
SaO2 (%): 97.0 (assumed)
Hbg (g/dL): 9.5
Rosendo
CO (liters/minute): 4.10
CI (liters/minute/m2): 2.35
Thermodilution
CO (liters/minute): Not obtained.
CI (liters/minute/m2): Not obtained.
TPG (mmHg): 12
PVR (Jovel Units): 2.93
AVO2 Difference (Volume %): 5.05
Radiation (mGy): 11.11
DAP (cm2.Gy): 0.9642
Fluoroscopy time (minutes): 3.8
CONCLUSION:
1. Severely elevated filling pressures (PCWP = 32 mmHg at 62.6 kg).
2. 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
3. Normal cardiac function (cardiac index = 2.35 L/min/m�).
RECOMMENDATIONS:
1. Expectant management after right heart catheterization via right antecubital approach.
2. Continue diuresis.
3. Guideline directed medical therapy as hemodynamics and renal function will permit.
Copy to: Denis Simmons M.D., Jaxson Velazquez M.D., Blake Pyle M.D.
Brian Cardenas D.O., FACC, FACP
[2023-04-08] MEDS: ZOSYN IV (17:22)
[2023-04-08] MEDS: CYANOCOBALAMIN 1000 MCG IM (17:33)
[2023-04-08] MEDS: LASIX 40 MG IV (17:33)
[2023-04-08] MEDS: LIPITOR 40 MG PO (17:43)
[2023-04-08] MEDS: SINEMET 25-100 1 TABLET PO (17:43)
[2023-04-09] VITALS (14 sets, daily range): BP systolic 116–153; BP diastolic 59–83; PULSE 72; O2SAT 94–96; BMI 20.3
[2023-04-09] MEDS: ZOSYN 50 IV ×4 (00:49→18:03)
[2023-04-09 05:40] LABS: % Basophils 0.4 % (0-2); % Eosinophils 1.6 % (0-6); % Immature Granulocytes 0.7 % (0-0.5); % Lymphocytes 9.5 % (20.5-51.1); % Monocytes 13.2 % (1.7-9.3); % Neutrophils 74.6 % (42.2-75.2); Absolute Eosinophils 0.1 10^3/uL (0-0.7); Absolute Lymphocytes 0.5 10^3/uL (1.2-3.4); Absolute Monocytes 0.8 10^3/uL (0.1-0.6); Absolute Neutrophils 4.2 10^3/uL (1.4-6.5); Hematocrit 29.4 % (39.0-52.0); Hemoglobin 9.9 g/dL (13.0-18.0); Mean Corp Hgb Conc. 33.7 g/dL (33.0-37.0); Mean Platelet Volume 9.3 fL (7.4-10.4); Nucleated Red Blood Cells % 0 % (-); Platelet Count 270 10^3/uL (130-400); Red Blood Cell Count 2.91 10^6/uL (4.70-6.10); Red Cell Dist. Width 14.1 % (11.5-14.5); White Blood Cell Count 5.7 10^3/uL (4.8-10.8)
[2023-04-09 06:01] LABS: Blood Urea Nitrogen 23 mg/dl (9-20); Calcium 8.1 mg/dl (8.4-10.2); Carbon Dioxide 33 mmol/L (22-30); Chloride 99 mmol/L (98-107); Estimated Creatinine Clearance 45 ml/min; Glucose 93 mg/dl (70-99); Potassium 3.9 mmol/L (3.5-5.1); Sodium 137 mmol/L (135-145); eGFR > 60.00
--- NOTE | 2023-04-09 06:21 | PTCARENOTE ---
Cared for patient overnight. aaox3, pleasant. Denies pain or SOB. Remains on 6LNC. NSR w/ BBB on monitor. CC remains in place draining yellow urine. NO bm. IV abx given. Labs drawn this am, creatinine improving. Pt sleeping. Bed alarm on, call rousseau
in reach. Will monitor.
--- NOTE | 2023-04-09 07:41 | W.PN.CD ---
Today's Communication / Plan
-
-
EKG today
cont diuresis today
cont to monitor for VT
ok to shower, ambulate
try to wean O2 and possible dc to home tomorrow
Likely home meds will be Lasix 40po/day and titrate as needed
and Metoprolol, plavix, eliquis, atorvastatin as before
Cardiol followup w Dr Benoit (Cardio-Oncology) in 7-10 days
Impression / Plan
-
SOB:
-RHC yesterday (04/08) revealed very elevated PCWP consistent w acute HFrEF
-Reviewed w [facility] - plan for cont'd diuresis
-Fortunately, renal function is improved today
-he feels better this morning, less sob
Acute on chronic HFrEF:
-EF 30% on echo, 20-25% by cath
-had heart failure many years ago, but EF recovered to 40% and has been stable without Sxs until recently
-New, recurrent HF probably to be due to cabozaninib which has now been dc'd
-he was on Aldactone as OP, not Lasix- hyperkalemia was seen - when able to go home will start Lasix 40/day and Not restart aldactone or amlodipine
-BNP elevated and reports weight gain and orthopnea
-on metoprolol. Of note, patient with hx throat/lip swelling with enalapril, so ACEI/ARB/Entresto being avoided.
-he has had some nonsust VT on Tele, but none in the past 12 hrs - we will cont to monitor
-If VT gets worse he may need increase BB or Device
-repeat EKG today - If persistent LBBB then he may be a candidate for ICD/CUSTOMER CARE ASSOCIATE in the future
CAD with recent LAD stenting 03/26/23:
-continue Plavix/Eliquis. No longer needs to be on aspirin (he completed triple therapy was for one week).
-denies any CP
-continue Lipitor, metoprolol
Hx PE:
-on Eliquis
Renal cell carcinoma:
-hx nephrectomy
-follow with onc - (Dr Kimberly Castorena at [facility] - [phone])
-chemo agent/TKI noted above, recently held by onc for CM
LBBB: chronic, stable
HTN: stable
-follow
Physical Exam
Vital Signs/Labs
Vital Signs
Temp Pulse Resp BP Pulse Ox
97.6 F 60 13 123/62 97
04/09/23 03:38 04/09/23 04:00 04/09/23 04:00 04/09/23 04:00 04/09/23 04:00
04/08/23 04/09/23 04/10/23
06:59 06:59 06:59
Actual Weight 138 lb 3.677 oz 133 lb 9.602 oz
04/09/23 05:07
04/09/23 05:07
Magnesium 2.6 mg/dl (1.6-2.3) H 04/08/23 03:17
04/07/23
05:12
[id number] Pept 81250
LAB Results
04/07/23 04/07/23
05:12 12:37
Troponin I 0.014 0.020 D
Data Reviewed
-
Date of Service: April 09, 2023
--- NOTE | 2023-04-09 09:09 | W.PN.PUL3 ---
Today's Communication / Plan
-
RHC results reviewed confirmed acute HF exacerbation, wedge >30
CT chest also confirmed pulm edema/effusions
IV diuresis resumed
He is already weaned to 2L with plan to wean to RA by today, his SOB has improved as well
Would stop abx at this point and observe off
No further recs from our standpoint, can follow repeated imaging as outpatient
We will sign off at this time, please call with questions
Assessment
-
Patient is a 78-year-old male with previous history of Parkinson disease, hypertension, RCC with mets to lung and bone, ACS with recent stent placement 1 week prior presenting with acute onset of shortness of breath and hypoxemia. He notes that
this started within the last few days, had previously not had shortness of breath in the past. Of note, he was noted to have echocardiogram with reduced EF of 30% felt to be due to his chemo regiment cabozantinib. This has recently been held by his
oncologist at [place]. CXR showing diffuse bilateral infiltrates, we are consulted for eval 04/07/23.
Acute hypoxic respiratory failure
Acute CHF with reduced EF, proBNP >75890
Weight gain 5-7 lbs
Bilateral patchy infiltrates, CHF likely, less likely drug induced pneumonitis
Severe LV dysfunction possible from chemotherapy
Had been on Cabozantinib, follows Dr Castorena at [facility]
Possible superimposed PNA, on abx, procal mildly elevated
BLESSING
Conditions present prior to admission:
Right hilar lung mass/Large pancreatic mass with bony metastases felt to be metastatic progression of RCC
History of renal cell carcinoma status post nephrectomy originally diagnosed 2000
Follows at [facility]
History of PE, on Eliquis
Asthma
CAD
Chronic systolic and diastolic heart failure
LBBB
Hypertension
Peripheral vascular disease
Parkinson's disease
Prior history of appendectomy
Plan
Hypoxemia noted on arrival, iniitally placed on 6L--he is now weaned to 2L satting 97%, can likely wean to RA today
No history of home O2 use in past
Denies any prior history of lung disease in the past including asthma/COPD. He was essentially a non smoker, no exposures that he is aware of.
Of note, he was also recently diagnosed with PE and placed on Eliquis.
It would be unusual to develop lung disease acutely relating to asthma/COPD
Suspect patient has underlying CHF exacerbation given proBNP and reduced EF
states he had gained weight of 5-7 lbs in the past month
CXR showing bilateral upper lobe findings, GGOs that is new from prior but past imaging was from 2019 for comparison and he had most of his imaging done at [facility].
Unclear what changes are acute vs chronic.
will bring in most recent imaging
Other imaging reviewed from 2019
[address] chest reviewed showing diffuse upper lobe GGO with bilateral pleural effusions
RHC results reviewed, wedge >30 confirming volume overload
Metastatic RCCC history
Cabozantinib information via [employer] showing minimal pulmonary disease related to use
>2% pleural effusion; <5% PE
Drug induced pneumonitis less likely
ECHO results in past reviewed--EF reduced
proBNP 17545
Marcus to be due to chemo, on hold
Cards following
IV diuresis resumed
Procal mildly elevated, on empiric abx
Check sputum culture if able
Would d/c abx and observe off
Will need outpatient pulmonary evaluation in our office for PFTs and 6MWT
Reviewed with patient
He has never had PFTs
Malnutrition may be an issue as well
Optimize diet
Aspiration precautions
Communicated care plan today with patient and with care team via TT
Diagnostic Data
Chest X-Ray: 04/07/23- 1. Patchy foci of interstitial and alveolar opacity bilaterally. Differential diagnosis includes multifocal pneumonia and atypical pulmonary edema. Radiographic follow-up to resolution is recommended.
2. Small left pleural effusion.
CT Chest 06/30/19- IMPRESSION:
1). There is a 4.5 cm heterogeneous pulmonary mass at the posterior inferior left hilum which highly probably is malignant.
2). There is 1.8 cm oval well-circumscribed pulmonary mass in the posterior aspect of the left upper lobe which is high-level suspicion for malignancy.
3). There is 2.4 cm lytic bone mass in the posterior medial left scapula which is high-level suspicion for lytic metastasis.
4). There is partial volume imaging of 10 cm inhomogeneous mass at the pancreatic head and adenopathy at the melecio hepatis seen on the 06/19/2019 MRI examination and 06/16/2019 CT abdomen pelvis study
5).There is a 2 cm inhomogeneous mass in the right lobe of the thyroid which, if clinically indicated, could be best further evaluated and followed with thyroid ultrasound
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
primary pancreatic cancer, less likely hepatic metastases from renal cell carcinoma.� Bilobed mass in the left abdomen and flank consistent with metastasis.� 3.9 cm enhancing mass in the right lower lobe of the lung consistent with pulmonary
metastasis.� 1.7 cm mass in the T12 vertebral body consistent with osseous metastases, Partial small bowel obstruction.� Large amount of varicosities in the wall of the gallbladder, no abnormal gallbladder distention or evidence for cholelithiasis,
no intrahepatic biliary dilatation,
Echo: 01/27/23- Severely reduced left ventricular systolic function. Left ventricular ejection�fraction is 30%.�Left ventricle is mildly dilated. Global hypokinesis.��Moderate mitral regurgitation.��Compared to prior study of Jan 2022: EF has
declined; MR is moderate from mild.
2019-Mildly reduced left ventricular systolic function, EF 45�50 percent, stage II diastolic dysfunction, mild to moderate MR.� Trace TR, estimated PA pressure 33�38
[facility] 03/26/23- 1: Elevated LVEDP
2.� Inferior akinesis and severe global hypokinesis with EF 20-25%
3.� At least mild to moderate mitral regurgitation
4.� Single-vessel LAD disease as described
5: Successful stenting of 80% mid LAD lesion using 3.0 x 12 Xience BARBY with outstanding angiographic result
RHC 04/08/23-
PA (s/d/x mmHg):� 61/36/44
PCWP (a/v/x mmHg):� 38/40/32
RV (s/x mmHg):�
RA (a/v/x mmHg):�
CONCLUSION:
1.� Severely elevated filling pressures (PCWP = 32 mmHg at 62.6 kg).
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
3.� Normal cardiac function (cardiac index = 2.35 L/min/m�).
PFT's:�
Reports and relevant images were personally reviewed.
Subjective Data
-
Date of Service:
Date of Service: April 09, 2023
Chief Complaint: Pulmonary Follow Up
Subjective:
patient seen, no acute events ON
weaned down to 2L, sitting in chair
feels great, able to walk down the dangelo and back
Objective Data
Data Reviewed
Vital Signs / I&O / Oxygen:
Vital Signs
Temp Pulse Resp BP Pulse Ox
97.6 F 60 13 123/62 97
04/09/23 03:38 04/09/23 04:00 04/09/23 04:00 04/09/23 04:00 04/09/23 04:00
Intake and Output
04/08/23 04/09/23 04/10/23
06:59 06:59 06:59
Intake Total 270 / 270 460 / 460
Output Total 2750 / 2750 2900 / 2900
Balance -2480 / -2480 -2440 / -2440
SaO2 97
Nasal Cannula flow liters per 6
minute
Physical Exam
General: Comfortable and Other (NAD, thin appearing)
HEENT: Normocephalic and Anicteric
Cardiovascular: S1-S2 and Regular Rhythm
Respiratory: Crackles (mild) and Non-Labored Respirations
GI: Soft, Non Distended and Non Tender
Neurology: Awake, Alert, Oriented, AO x 3, No Motor Deficits and Depressed
Skin: Warm, Dry and Good Color
Labs/Micro/Reports
Lab Data
04/09/23 05:07
04/09/23 05:07
Microbiology
04/07/23 20:41 Urine Legionella Urinary Antigen - Final
Negative for Legionella pneumophila Serogroup 1 antigen.
A negative result does not rule out the possiblity of
Legionella infection due to other serogroups or species of
Legionella. Clinical correlation is recommended.
04/07/23 20:41 Urine Streptococcus pneumoniae Antigen (M - Final
Negative for Streptococcus pneumoniae antigen.
A negative result does not exclude infection with
Streptococcus pneumoniae. Clinical correlation is
recommended.
04/07/23 05:24 Nasal Swab Influenza Types A & B (JOSH) - Final
Negative for Influenza A & B, NAAT
Negative results must be combined with clinical observations
and patient history.
Nucleic Acid Amplification test (NAAT)performed on the
[employer] platform.
[2023-04-09] MEDS: CYANOCOBALAMIN 1000 MCG IM (09:23)
[2023-04-09] MEDS: PROTONIX IV 40 MG IV (09:23)
[2023-04-09] MEDS: LASIX 40 MG IV ×2 (09:23→18:03)
[2023-04-09] MEDS: KCL 20 MEQ PO (09:24)
[2023-04-09] MEDS: NSS (PRESERVATIVE FREE) 10 ML IV (09:24)
[2023-04-09] MEDS: TOPROL XL 50 MG PO (09:25)
[2023-04-09] MEDS: PLAVIX 75 MG PO (09:25)
[2023-04-09] MEDS: ELIQUIS 5 MG PO ×2 (09:25→19:48)
[2023-04-09] MEDS: SINEMET 25-100 2 TABLET PO ×2 (09:25→19:48)
--- NOTE | 2023-04-09 12:04 | CM ---
met with patient at [facility].he is sp cardiac cath,now down to 4 liters nc o2,cont iv lasix bid,wearing [place] catheter.patient was seen by therapy who recommends home pt.I spoke with patient and explained that home pt has been recommended by therapy
but patient has declined.cm to continue to follow patient for any home o2 needs.
--- NOTE | 2023-04-09 12:36 | W.PN.HOSP.TC ---
Today's Communication/Plan
-
Monitor vital signs and see plan
PT/OT
Continue with IV Lasix
Wean oxygen as tolerated
Monitor hemoglobin
Assessment / Plan
Assessment / Plan
General: Well Developed, Well Nourished and Respiratory Distress
HEENT: NormoCephalic, Moist mucous membranes, Atraumatic and Oxygen NC
Respiratory: Clear and Non Labored Respirations; No Wheezes or Accessory Resp Muscle Use
Cardiac: S1/S2 and Regular Rhythm; No Murmur or Rub
GI: Soft, Non Tender, Non Distended and Normal Bowel Sounds; No Organomegaly
Rectal: Deferred by Provider
Musculoskeletal: No Clubbing, No Cyanosis and No Edema
Skin: No Rash
Neuro: Awake and Alert
Psych: Calm and Intact Judgment/Insight
Acute hypoxic respiratory failure suspect related to acute CHF with reduced ejection fraction
was placed on bipap on admission; now on 4L; wean o2 as tolerated
suspect component of PNA as well
Cardiac catheterization 2/ with LAD stent, elevated left ventricular end-diastolic pressure, inferior akinesis and severe global hypokinesis with EF 20 to 25%
CXR noted; probnp mildly high
s/p right heart cath 04/08 consistent with elevated pressure. Continue with IV Lasix.
cardiology following
procal mildly high so will treat for PNA
COVID/Flu negative
Pulm following
CT chest consistent with severe bilateral pneumonia. Greatest in the upper lobe. Moderate left pleural effusion. Known malignancy. Does have stable lytic lesion in the T12 vertebral body. cw abx
# Renal cell carcinoma with pulmonary metastases
# h/o right nephrectomy
Pt follows at [facility]
His chemotherapeutic agent was stopped 2 weeks ago; restart when able per his outpatient oncology
has [place] cath and overnight once small blood clot per patient; urine now clear.
Anemia, suspect some dilutional
Monitor
Has good iron stores
Low vitamin B12, will replete
mild hyperkalemia
monitor
Hyperkalemia
improved
# recent ACS s/p PCI to LAD 1 week prior
Cont ASA/plavix
cards following
# Parkinson's disease
Cont SIDING APPLICATOR Sinemet
# h/o recent pulm embolism, on Eliquis for 3 months
Continue prior to admission Eliquis
# hypertension
Cont home meds except Aldactone due to hyperkalemia
# Mild hyperkalemia
hold SIDING APPLICATOR Aldactone
DVT ppx: SIDING APPLICATOR Eliquis
I spent a total of 53 minutes with the patient or on the floor. More than 50% of this time involved counseling and coordination of care.
Anticipated Discharge: 24 - 48 hours
Subjective/Interval History
-
Date of Service: April 09, 2023
Denies pain
Objective Data
-
Labs:
Laboratory Results
04/09/23
05:07
WBC 5.7
Hgb 9.9 L
Hct 29.4 L
Plt Count 270
Sodium 137
Potassium 3.9
Chloride 99
Carbon Dioxide 33 H
BUN 23 H
Creatinine 1.2
Glucose 93
Calcium 8.1 L
Vital Signs:
Vital Signs
Temp Pulse Resp BP Pulse Ox
97.6 F 74 24 132/73 98
04/09/23 07:32 04/09/23 10:13 04/09/23 10:13 04/09/23 10:13 04/09/23 10:39
I&O
04/08/23 04/09/23 04/10/23
06:59 06:59 06:59
Intake Total 270 / 270 460 / 460
Output Total 2750 / 2750 2900 / 2900
Balance -2480 / -2480 -2440 / -2440
--- NOTE | 2023-04-09 12:39 | PTCARENOTE ---
Pt presents as assessed. Aox3 and pleasant. Dressing falling off at cath site, per label press operator it is okay to remove dressing. Site intact. OOB to chair with PT. Weaned to RA by RT. Pt ringing appropriately, call rousseau within reach.
[2023-04-09] MEDS: LIPITOR 40 MG PO (18:04)
[2023-04-09] MEDS: SINEMET 25-100 1 TABLET PO (18:04)
--- NOTE | 2023-04-09 20:08 | PTCARENOTE ---
Caring for patient overnight. AAOX3, pleasant, denies pain. RAC intact, ANTIONE, ecchymotic, neurovascular check WNL. NSR BBB & Prolonged QT. NO SOB. Inspiratory wheezing heard but not c/o of sob, 95% RA. CC in place, urinating well, yellow. Call rousseau
in reach. Will continue to monitor.
[2023-04-10] VITALS (13 sets, daily range): BP systolic 101–142; BP diastolic 55–81; O2SAT 96–97
[2023-04-10] MEDS: ZOSYN 50 IV ×4 (00:03→17:34)
[2023-04-10 04:41] LABS: % Basophils 0.3 % (0-2); % Eosinophils 1.5 % (0-6); % Immature Granulocytes 0.3 % (0-0.5); % Lymphocytes 12.3 % (20.5-51.1); % Monocytes 14.6 % (1.7-9.3); Absolute Eosinophils 0.1 10^3/uL (0-0.7); Absolute Lymphocytes 0.7 10^3/uL (1.2-3.4); Absolute Monocytes 0.9 10^3/uL (0.1-0.6); Absolute Neutrophils 4.1 10^3/uL (1.4-6.5); Hematocrit 31.4 % (39.0-52.0); Hemoglobin 10.5 g/dL (13.0-18.0); Mean Corp Hgb Conc. 33.4 g/dL (33.0-37.0); Mean Corpuscular Hgb 33.9 pg (27.0-31.0); Mean Corpuscular Volume 101.3 fL (80.0-94.0); Nucleated Red Blood Cells % 0 % (-); Platelet Count 295 10^3/uL (130-400); Red Cell Dist. Width 13.8 % (11.5-14.5); White Blood Cell Count 5.8 10^3/uL (4.8-10.8)
[2023-04-10 05:04] LABS: Blood Urea Nitrogen 21 mg/dl (9-20); Calcium 8.1 mg/dl (8.4-10.2); Carbon Dioxide 33 mmol/L (22-30); Chloride 98 mmol/L (98-107); Estimated Creatinine Clearance 41 ml/min; Glucose 107 mg/dl (70-99); Potassium 3.8 mmol/L (3.5-5.1); Sodium 134 mmol/L (135-145); eGFR 56.93
[2023-04-10] MEDS: CYANOCOBALAMIN 1000 MCG IM (08:03)
[2023-04-10] MEDS: PROTONIX IV 40 MG IV (08:03)
[2023-04-10] MEDS: LASIX 40 MG IV (08:03)
[2023-04-10] MEDS: NSS (PRESERVATIVE FREE) 10 ML IV (08:03)
[2023-04-10] MEDS: PLAVIX 75 MG PO (08:04)
[2023-04-10] MEDS: TOPROL XL 50 MG PO ×2 (08:04→20:26)
[2023-04-10] MEDS: SINEMET 25-100 2 TABLET PO ×2 (08:04→20:26)
[2023-04-10] MEDS: ELIQUIS 5 MG PO ×2 (08:04→20:25)
--- NOTE | 2023-04-10 10:10 | W.PN.CD ---
Today's Communication / Plan
-
start furosemide 40mg po daily tomorrow
d/w pt and daily weights and when to call office
increase metoprolol succinate to 50 bid
OK to discharge from cardiac perspective.
f/u in office arranged
Impression / Plan
-
SOB:
-RHC yesterday (04/08) revealed very elevated PCWP consistent w acute HFrEF
-Reviewed w [facility] - plan for cont'd diuresis
-Fortunately, renal function is improved today
-he feels better this morning, less sob
Acute on chronic HFrEF:
-EF 30% on echo, 20-25% by cath
-had heart failure many years ago, but EF recovered to 40% and has been stable without Sxs until recently
-New, recurrent HF probably to be due to cabozaninib which has now been dc'd
-he was on Aldactone as OP, not Lasix- hyperkalemia was seen - when able to go home will start Lasix 40/day and Not restart aldactone or amlodipine
-BNP elevated and reports weight gain and orthopnea
-on metoprolol. Of note, patient with hx throat/lip swelling with enalapril, so ACEI/ARB/Entresto being avoided.
-he has had some nonsust VT on Tele, but none in the past 24 hrs - I will increase bb for discharge
-If VT gets worse he may need increase BB or Device
-LBBB on may be a candidate for ICD/WET PRESS TENDER in the future
CAD with recent LAD stenting 03/26/23:
-continue Plavix/Eliquis. No longer needs to be on aspirin (he completed triple therapy was for one week).
-denies any CP
-continue Lipitor, metoprolol
Hx PE:
-on Eliquis
Renal cell carcinoma:
-hx nephrectomy
-follow with onc - (Dr Kimberly Castorena at [facility] - [phone])
-chemo agent/TKI noted above, recently held by onc for CM
LBBB: chronic, stable
HTN: stable
-stopping aldactone and amlodipine
-starting lasix and increasing bb.
Physical Exam
Vital Signs/Labs
Vital Signs
Temp Pulse Resp BP Pulse Ox
97.7 F 74 17 138/68 93
04/10/23 08:15 04/10/23 08:04 04/10/23 08:00 04/10/23 08:04 04/10/23 08:00
04/09/23 04/10/23 04/11/23
06:59 06:59 06:59
Actual Weight 60.6 kg 59.7 kg
04/10/23 04:21
04/10/23 04:21
Magnesium 2.6 mg/dl (1.6-2.3) H 04/08/23 03:17
04/07/23
05:12
Pyh-I-Hsbxclmbrtw Pept 11505
LAB Results
04/07/23
12:37
Troponin I 0.020 D
Physical Exam
Constitutional: No acute distress
Cardiovascular: Rhythm & rate is regular, Pedal edema is absent, JVD pressure is normal, Systolic murmur absent and Diastolic murmur absent
Respiratory: Respiratory effort normal, Lungs clear to auscul., Wheeze Absent, Crackles Absent and Rhonchi Absent
GI: Soft
Neuro/Psych: AO x 3
Data Reviewed
-
Date of Service: April 10, 2023
X-Ray/CT/US/MRI/NUC/PET: Discussed with Physician (home today on increased bb and po lasix) and Discussed with Patient (and CHF plan at home and medication changes)
--- NOTE | 2023-04-10 10:43 | PTCARENOTE ---
Assumed care of patient at beginning of this shift from previous RN; POx 94% on RA. Patient using condom cath but states it is only because he is ordered IV lasix and has frequency. See worklist for full assessment and vital signs; see MAR for med
administration.
--- NOTE | 2023-04-10 11:51 | W.PN.HOSP.TC ---
Today's Communication/Plan
-
monitor vitals
see plan
cw lasix
cw abx
home o2 eval
cw metoprolol
Assessment / Plan
Assessment / Plan
General: Well Developed, Well Nourished and Respiratory Distress
HEENT: NormoCephalic, Moist mucous membranes, Atraumatic
Respiratory: Clear and Non Labored Respirations; No Wheezes or Accessory Resp Muscle Use
Cardiac: S1/S2 and Regular Rhythm; No Murmur or Rub
GI: Soft, Non Tender, Non Distended and Normal Bowel Sounds; No Organomegaly
Rectal: Deferred by Provider
Musculoskeletal: No Clubbing, No Cyanosis and No Edema
Skin: No Rash
Neuro: Awake and Alert
Psych: Calm and Intact Judgment/Insight
Acute hypoxic respiratory failure suspect related to acute CHF with reduced ejection fraction
was placed on bipap on admission; wean o2 as tolerated
suspect component of PNA as well
Cardiac catheterization / with LAD stent, elevated left ventricular end-diastolic pressure, inferior akinesis and severe global hypokinesis with EF 20 to 25%
CXR noted; probnp mildly high
s/p right heart cath 04/08 consistent with elevated pressure. Continue with IV Lasix.
cardiology following
procal mildly high so will treat for PNA
COVID/Flu negative
Pulm following
CT chest consistent with severe bilateral pneumonia. Greatest in the upper lobe. Moderate left pleural effusion. Known malignancy. Does have stable lytic lesion in the T12 vertebral body. cw abx
hold aldactone and amlodipine on dc
# Renal cell carcinoma with pulmonary metastases
# h/o right nephrectomy
Pt follows at [facility]
His chemotherapeutic agent was stopped 2 weeks ago; restart when able per his outpatient oncology
has [place] cath and overnight once small blood clot per patient; urine now clear.
Anemia, suspect some dilutional
Monitor
Has good iron stores
Low vitamin B12, will replete
mild hyperkalemia
monitor
Hyperkalemia
improved
# recent ACS s/p PCI to LAD 1 week prior
Cont ASA/plavix
cards following
# Parkinson's disease
Cont WAREHOUSE CONSULTANT Sinemet
# h/o recent pulm embolism, on Eliquis for 3 months
Continue prior to admission Eliquis
# hypertension
Cont home meds except Aldactone due to hyperkalemia
# Mild hyperkalemia
hold WAREHOUSE CONSULTANT Aldactone
DVT ppx: WAREHOUSE CONSULTANT Eliquis
Anticipated Discharge: Within 24 hours
Subjective/Interval History
-
Date of Service: April 10, 2023
denies pain
Objective Data
-
Labs:
Laboratory Results
04/10/23
04:21
WBC 5.8
Hgb 10.5 L
Hct 31.4 L
Plt Count 295
Sodium 134 L
Potassium 3.8
Chloride 98
Carbon Dioxide 33 H
BUN 21 H
Creatinine 1.3
Glucose 107 H
Calcium 8.1 L
Vital Signs:
Vital Signs
Temp Pulse Resp BP Pulse Ox
97.7 F 68 19 139/72 95
04/10/23 08:15 04/10/23 10:00 04/10/23 10:00 04/10/23 10:00 04/10/23 08:12
I&O
04/09/23 04/10/23 04/11/23
06:59 06:59 06:59
Intake Total 460 / 460 340 / 340
Output Total 2900 / 2900 1250 / 1250
Balance -2440 / -2440 -910 / -910
[2023-04-10] MEDS: LIPITOR 40 MG PO (17:34)
[2023-04-10] MEDS: SINEMET 25-100 1 TABLET PO (17:34)
[2023-04-11] VITALS: BP 111/75
[2023-04-11] MEDS: ZOSYN 50 IV ×2 (00:11→06:07)
[2023-04-11 02:00] VITALS: BP 99/73
--- NOTE | 2023-04-11 02:16 | PTCARENOTE ---
Received patient at change of shift. Patient with no complaints or concerns. Assessment and vital signs as documented. Medications given as per MAR. Patient using urinal to void, OOB w/assistance.
[2023-04-11 04:00] VITALS: BP 122/64
[2023-04-11 05:22] VITALS: BMI 19.8
[2023-04-11 06:00] VITALS: BP 137/63
[2023-04-11 07:21] LABS: % Basophils 0.2 % (0-2); % Eosinophils 1.9 % (0-6); % Immature Granulocytes 0.8 % (0-0.5); % Lymphocytes 13.7 % (20.5-51.1); % Monocytes 14.1 % (1.7-9.3); % Neutrophils 69.3 % (42.2-75.2); Absolute Eosinophils 0.1 10^3/uL (0-0.7); Absolute Lymphocytes 0.7 10^3/uL (1.2-3.4); Absolute Monocytes 0.7 10^3/uL (0.1-0.6); Absolute Neutrophils 3.6 10^3/uL (1.4-6.5); Hematocrit 30.6 % (39.0-52.0); Hemoglobin 10.6 g/dL (13.0-18.0); Mean Corp Hgb Conc. 34.6 g/dL (33.0-37.0); Mean Corpuscular Hgb 33.8 pg (27.0-31.0); Mean Corpuscular Volume 97.5 fL (80.0-94.0); Mean Platelet Volume 9.3 fL (7.4-10.4); Nucleated Red Blood Cells % 0 % (-); Platelet Count 288 10^3/uL (130-400); Red Blood Cell Count 3.14 10^6/uL (4.70-6.10); Red Cell Dist. Width 13.8 % (11.5-14.5); White Blood Cell Count 5.3 10^3/uL (4.8-10.8)
[2023-04-11 07:45] LABS: Blood Urea Nitrogen 18 mg/dl (9-20); Calcium 7.8 mg/dl (8.4-10.2); Carbon Dioxide 30 mmol/L (22-30); Chloride 98 mmol/L (98-107); Estimated Creatinine Clearance 44 ml/min; Glucose 99 mg/dl (70-99); Potassium 3.5 mmol/L (3.5-5.1); Sodium 133 mmol/L (135-145); eGFR > 60.00
[2023-04-11 07:49] LABS: Transferrin 131 mg/dL (200-360)
[2023-04-11 08:00] VITALS: BP 126/71
[2023-04-11] MEDS: ELIQUIS 5 MG PO (08:05)
[2023-04-11] MEDS: PLAVIX 75 MG PO (08:06)
[2023-04-11] MEDS: LASIX 40 MG PO (08:06)
[2023-04-11] MEDS: TOPROL XL 50 MG PO (08:06)
[2023-04-11] MEDS: SINEMET 25-100 2 TABLET PO (08:06)
[2023-04-11] MEDS: NSS (PRESERVATIVE FREE) 10 ML IV (08:07)
[2023-04-11] MEDS: CYANOCOBALAMIN 1000 MCG IM (08:07)
[2023-04-11] MEDS: PROTONIX IV 40 MG IV (08:07)
[2023-04-11 10:00] VITALS: BP 108/77
--- NOTE | 2023-04-11 11:04 | W.PN.HOSP.TC ---
Addendum entered and electronically signed by Jaxson Velazquez MD 04/11/23 11:10:
Now only on Plavix and Eliquis. Aspirin stopped since finished triple therapy for 1 week after stent
Original Note:
Today's Communication/Plan
-
Monitor vital signs see plan
Change antibiotics to oral
Continue with Lasix
Discharge today
Time of discharge 38 minutes
Assessment / Plan
Assessment / Plan
General: Well Developed, Well Nourished and Respiratory Distress
HEENT: NormoCephalic, Moist mucous membranes, Atraumatic
Respiratory: Clear and Non Labored Respirations; No Wheezes or Accessory Resp Muscle Use
Cardiac: S1/S2 and Regular Rhythm; No Murmur or Rub
GI: Soft, Non Tender, Non Distended and Normal Bowel Sounds; No Organomegaly
Rectal: Deferred by Provider
Musculoskeletal: No Clubbing, No Cyanosis and No Edema
Skin: No Rash
Neuro: Awake and Alert
Psych: Calm and Intact Judgment/Insight
Acute hypoxic respiratory failure suspect related to acute CHF with reduced ejection fraction
was placed on bipap on admission; wean o2 as tolerated; now on room air; did well with ambulation, does not need home O2
suspect component of PNA as well
Cardiac catheterization / with LAD stent, elevated left ventricular end-diastolic pressure, inferior akinesis and severe global hypokinesis with EF 20 to 25%
CXR noted; probnp mildly high
s/p right heart cath 04/08 consistent with elevated pressure. Continue with IV Lasix.
cardiology following
procal mildly high so will treat for PNA
COVID/Flu negative
Pulm following
CT chest consistent with severe bilateral pneumonia. Greatest in the upper lobe. Moderate left pleural effusion. Known malignancy. Does have stable lytic lesion in the T12 vertebral body. cw abx; change to PO
hold aldactone and amlodipine on dc
# Renal cell carcinoma with pulmonary metastases
# h/o right nephrectomy
Pt follows at [facility]
His chemotherapeutic agent was stopped 2 weeks ago; restart when able per his outpatient oncology
has [place] cath and overnight once small blood clot per patient; urine now clear.
Anemia, suspect some dilutional
Monitor
Has good iron stores
Low vitamin B12, will replete
mild hyperkalemia
monitor
Hyperkalemia
improved
# recent ACS s/p PCI to LAD 1 week prior
Cont ASA/plavix
cards following
# Parkinson's disease
Cont CCNP Sinemet
# h/o recent pulm embolism, on Eliquis for 3 months
Continue prior to admission Eliquis
# hypertension
Cont home meds except Aldactone due to hyperkalemia
# Mild hyperkalemia
hold CCNP Aldactone
DVT ppx: CCNP Eliquis
Anticipated Discharge: Today
Subjective/Interval History
-
Date of Service: April 11, 2023
Denies chest pain
Objective Data
-
Labs:
Laboratory Results
04/11/23
05:14
WBC 5.3
Hgb 10.6 L
Hct 30.6 L
Plt Count 288
Sodium 133 L
Potassium 3.5
Chloride 98
Carbon Dioxide 30
BUN 18
Creatinine 1.2
Glucose 99
Calcium 7.8 L
Vital Signs:
Vital Signs
Temp Pulse Resp BP Pulse Ox
97.5 F 62 19 108/77 83
04/11/23 07:07 04/11/23 10:00 04/11/23 10:00 04/11/23 10:00 04/11/23 10:00
I&O
04/10/23 04/11/23 04/12/23
06:59 06:59 06:59
Intake Total 340 / 340 440 / 440
Output Total 1250 / 1250 1050 / 1050
Balance -910 / -910 -610 / -610
--- NOTE | 2023-04-11 11:09 | W.DCSUMMARY ---
Discharge Summary
Discharge Data
Date of Admission: 04/07/23
Date of Discharge: 04/11/23
-
Pending Results: No
Hospital Course
78-year-old male with past medical history of renal cell carcinoma with pulmonary metastases, CAD with recent cardiac stent, Parkinson's disease, cardiomyopathy, recent pulmonary embolism, hypertension came to the hospital with acute hypoxic
respiratory failure which was likely thought was secondary to congestive heart failure exacerbation. Patient initially required BiPAP however was able to be weaned off oxygen prior to the discharge. Patient required aggressive diuresis with IV
lasix. Patient also had a right heart catheterization on 04/08 which showed elevated pressure consistent with fluid overload. Patient also had a CT scan of the chest which showed bilateral pneumonia. Since his procalcitonin was elevated he was
then started on antibiotics. On discharge his antibiotics was changed to oral. On this hospitalization patient's Aldactone and amlodipine was discontinued. Once patient's symptoms improved after diuresis, he was then discharged home with
instructions to follow-up with all his physicians outpatient.
Discharge Plan
-
Patient Disposition: Home (Routine Discharge)
Discharge Diagnosis/Procedures: Acute hypoxic respiratory failure related to acute CHF with reduced ejection fraction
Status post right heart catheterization
Pneumonia
Condition: Fair
Diet: As tolerated
Activity: As tolerated
Driving Restrictions: As prior to admission
Bathing Restrictions: None
Stop these medications:: Aspirin, Aldactone, amlodipine
Instructions: *CBC Heart Failure Instructions
Stand Alone Forms: DC Instructions- Cath/EP Lab
Referrals:
Judie Oliveros CRNP [Specified Professional Personl] - 04/30/23 9:20 am
Blake Pyle MD [Family Provider] - in less than 1 week
Prescriptions:
New
metoprolol succinate 50 mg Tablet Extended Release 24 Hr
50 mg PO BID Qty: 60 0RF
cyanocobalamin (vitamin B-12) 1,000 mcg capsule
1,000 mcg PO DAILY Qty: 30 0RF
furosemide 40 mg Tablet
40 mg PO DAILY Qty: 30 0RF
pantoprazole [Protonix] 40 mg tablet,delayed release (DR/EC)
40 mg PO DAILY Qty: 30 0RF
amoxicillin-pot clavulanate 875-125 mg tablet
1 tab PO BID Qty: 6 0RF
Continued
carbidopa-levodopa 1 TABLET tablet
2 tab PO BID
carbidopa-levodopa 1 TABLET tablet
1 tab PO QPM
atorvastatin 40 mg Tablet
40 mg PO QPM Qty: 90 3RF
clopidogrel 75 mg Tablet
75 mg PO DAILY Qty: 90 3RF
nitroglycerin 0.4 mg tablet, sublingual
0.4 mg sublingual [id number] PRN (Reason: chest pain) Qty: 25 2RF
Eliquis 5 mg Tablet
5 mg PO BID
Discontinued
metoprolol succinate 50 MG tablet extended release 24 hr
50 mg PO DAILY
aspirin 81 MG tablet,delayed release (DR/EC)
81 mg PO DAILY
spironolactone 12.5 MG tablet
12.5 mg PO Daily
amlodipine 10 MG tablet
10 mg PO DAILY
Discharge Orders:
Discharge Patient (As Directed); Ordered 04/11/23
Ordered By: Jaxson Velazquez
Discharge Date and Time
Discharge Date/Time: 04/11/23 12:47
--- NOTE | 2023-04-11 11:53 | PTCARENOTE ---
Assumed care of patient at beginning of this shift from previous RN. Patient ordered to be discharged home. Discharge instructions reviewed with both and patient; both verbalized understanding and had no questions. See worklist for full
assessment and vital signs; see MAR for med administration.
--- NOTE | 2023-04-12 13:17 | W.HF.CON ---
Heart Failure
- LV Function
Left ventricular function study result: LV Ejection fraction </= 35% (ECHO 01/27/23)
Ejection Fraction Percentage: 30
- ARNI
Patient already on ARNI: No
Heart Failure ARNI Contraindication: Angioedema
- ACEI/ARB
Patient already on ACEI/ARB: No
Heart Failure ACEI/ARB Contraindication: Angioedema
- Beta Katie
Patient already on Evidence Based Beta Katie: Yes
- Mineralocorticord Receptor Antagonist
Patient already on MRA: No
Heart Failure MRA Contraindication: Hyperkalemia - serum >5
- SGLT-2 Inhibitor
Patient already on SGLT-2 Inhibitor: No
Heart Failure SGLT-2 Inhibitor Contraindication: Patient Refusal
- NYHA CHF Classification
NYHA CHF Classification Level: Class III - Symptoms w/ min exertion, interferes w/ nml daily activity
- ACC/AHA Stage
ACC/AHA Stage: Stage C: Symptomatic Heart Failure
== END 2023-04-11 12:47 | disposition home or self-care (01) | DRG 286 ==
LOC: IMU 06:41
PROVIDERS: Internal Medicine Cardiovascular Disease; ADMITTING PHYSICIAN Internal Medicine; ATTENDING PHYSICIAN Internal Medicine; CONSULT PHYSICIAN Internal Medicine Critical Care Medicine; EMERGENCY PHYSICIAN Student in an Organized Health Care Education/Training Program; FAMILY PHYSICIAN Family Medicine; OTHER PHYSICIAN Internal Medicine Cardiovascular Disease
PROC: 4A023N6 Measurement of Cardiac Sampling and Pressure, Right Heart, Percutaneous Approach (ICD-10-PCS; 2023-04-08)
DX: I11.0 Hypertensive heart disease with heart failure (principal); I50.43 Acute on chronic combined systolic (congestive) and diastolic (congestive) heart failure; J96.01 Acute respiratory failure with hypoxia; J18.9 Pneumonia, unspecified organism; C78.00 Secondary malignant neoplasm of unspecified lung; C79.51 Secondary malignant neoplasm of bone; J44.0 Chronic obstructive pulmonary disease with (acute) lower respiratory infection; N17.9 Acute kidney failure, unspecified; I42.9 Cardiomyopathy, unspecified; I25.10 Atherosclerotic heart disease of native coronary artery without angina pectoris; G20.A1 Parkinson's disease without dyskinesia, without mention of fluctuations; I27.22 Pulmonary hypertension due to left heart disease; E87.5 Hyperkalemia; K86.9 Disease of pancreas, unspecified; I44.7 Left bundle-branch block, unspecified; Z86.711 Personal history of pulmonary embolism; Z79.01 Long term (current) use of anticoagulants; Z95.5 Presence of coronary angioplasty implant and graft; Z85.528 Personal history of other malignant neoplasm of kidney; Z90.5 Acquired absence of kidney
CPT/HCPCS: 71045; 71250; 80048; 80053; 82607; 82728; 82746; 82805; 83540; 83550; 83735; 83880; 84145; 84466; 84484; 85025; 86850; 86900; 86901; 87070; 87449; 87502; 87811; 87899; 93005; 93451; 94660; 96374; 97162; 97167; 99291; C1769; C1894